=== PATIENT | female | born 1940 | race Caucasian/White ===

== ENCOUNTER 2017-02-15 11:50 | Outpatient (CLI) | payer MEDICARE, OTHER | END 2017-02-15 11:51 | disposition home or self-care (01) | LOC: LAB.WCP 11:50 | PROVIDERS: ATTEND Family Medicine | DX: E87.6 Hypokalemia (principal) | CPT/HCPCS: 36415; 84132 ==

== ENCOUNTER 2017-03-07 10:43 | Outpatient (CLI) | payer MEDICARE, OTHER ==
--- NOTE | 2017-03-07 11:37 | XRAY Report ---
TWO VIEW LEFT KNEE: 03/07/2017 CLINICAL INDICATION: Knee pain. FINDINGS: Standing frontal and lateral views of the left knee demonstrate mild osteoarthritis. There is no evidence of fracture. No effusion is evident. IMPRESSION: MILD OSTEOARTHRITIS. JOB #: [id number] EXT JOB #:[id number]
== END 2017-03-07 10:44 | disposition home or self-care (01) ==
LOC: DI 10:43
PROVIDERS: ATTEND Family Medicine
DX: M17.12 Unilateral primary osteoarthritis, left knee (principal)

== ENCOUNTER 2017-11-07 13:48 | Outpatient (CLI) | payer MEDICARE, OTHER ==
[2017-11-07 19:18] LABS: BASOPHILS % (AUTO) 0.5 %; EOSINOPHILS % (AUTO) 0.5 %; HGB - HEMOGLOBIN 13.2 g/dL (12.0-16.0); LYMPHOCYTES # (AUTO) 1.4 10^3/uL (1.5-3.5); LYMPHOCYTES % (AUTO) 26.7 %; MEAN CORPUSCULAR HEMOGLOBIN 29.3 pg (27.0-31.0); MEAN CORPUSCULAR HGB CONC 32.1 g/dL (32.0-36.0); MEAN CORPUSCULAR VOLUME 91.2 fL (81.0-99.0); MEAN PLATELET VOLUME 8.6 fL (7.9-10.8); MONOCYTES # (AUTO) 0.4 10^3/uL (0.0-1.0); MONOCYTES % (AUTO) 7.6 %; NEUTROPHILS # (AUTO) 3.5 10^3/uL (1.5-6.6); NEUTROPHILS % (AUTO) 64.7 %; PLT - PLATELET COUNT 293 10^3/uL (130-450); WHITE BLOOD COUNT 5.3 x10^3/uL (4.8-10.8)
[2017-11-07 19:38] LABS: ALBUMIN 4.1 g/dL (3.2-5.5); ALBUMIN/GLOBULIN RATIO 1.1 (1.0-2.2); ALKALINE PHOSPHATASE 59 IU/L (42-121); ALT ALANINE AMINOTRANSFERASE 16 IU/L (10-60); AST ASPARTATE AMINOTRANSFERASE 23 IU/L (10-42); BILIRUBIN,TOTAL 0.4 mg/dL (0.2-1.0); BUN - BLOOD UREA NITROGEN 13 mg/dL (6-20); CALCIUM 9.5 mg/dL (8.5-10.3); CARBON DIOXIDE - CO2 27 mmol/L (21-32); CHLORIDE 99 mmol/L (101-111); CHOL/HDL RATIO 3.4 (<4.4); CHOLESTEROL 199 mg/dL; CREATININE 0.7 mg/dL (0.4-1.0); GFR - MDRD 81 (>89); GLUCOSE 90 mg/dL (70-100); HDL CHOLESTEROL 58 mg/dL; LDL CHOLESTEROL,CALCULATED 106 mg/dL; LDL/HDL RATIO 1.8 (<4.4); SODIUM 137 mmol/L (135-145); TOTAL PROTEIN 7.7 g/dL (6.7-8.2); VLDL CHOLESTEROL 35 mg/dL
[2017-11-07 19:40] LABS: HB2 TOTAL 14.8 g/dL; HEMOGLOBIN A1C 0.52 g/dL; HEMOGLOBIN A1C % 5.4 % (4.6-6.2)
== END 2017-11-07 13:49 ==
LOC: LAB.WCP 13:48
PROVIDERS: ATTEND Family Medicine
DX: R53.83 Other fatigue (principal); R73.01 Impaired fasting glucose; I10 Essential (primary) hypertension
CPT/HCPCS: 36415; 80053; 80061; 83036; 83721; 84443; 85025

== ENCOUNTER 2017-11-24 08:01 | Day surgery (SDC) | payer MEDICARE, OTHER ==
[~2017-11-24 08:01] MED LIST: BRIMONIDINE 0.2% OPHTH DROPS 5 ML ONE; BSS/LIDOCAINE/EPINEPHRINE 1 ML SYRINGE ONE; EPINEPHrine 1 MG/ML AMP ONE; TIMOLOL 0.5% OPHTH DROPS ONE; TRIAMCIN/MOXIFLOX OPHTHALMIC 0.6 ML VIAL IO ONE; VANCOMYCIN OPHTHALMI 8MG/0.8ML 8 MG/0.8 ML SYRINGE IO ONE
[2017-11-24] MEDS ORDERED: PROPARACAINE 0.5% OPHTH DROPS 15 ML ONE (08:59)
[2017-11-24] MEDS ORDERED: PHENYLEPHRINE 2.5% OPHTH 2 ML DROPS ONE (08:59)
[2017-11-24] MEDS ORDERED: KETOROLAC 0.45% OPHTH DROPS ONE (08:59)
[2017-11-24] MEDS ORDERED: CYCLOPENTOLATE 1% OPHTH DROPS 2 ML ONE (08:59)
[2017-11-24] MEDS ORDERED: PHENYLEPHRINE 2.5% OPHTH 2 ML DROPS RIGHTEYE ONE (09:15)
[2017-11-24] MEDS ORDERED: CYCLOPENTOLATE 1% OPHTH DROPS 2 ML RIGHTEYE ONE (09:15)
[2017-11-24] MEDS ORDERED: KETOROLAC 0.45% OPHTH DROPS RIGHTEYE ONE (09:15)
[2017-11-24] MEDS ORDERED: PROPARACAINE 0.5% OPHTH DROPS 15 ML RIGHTEYE ONE ×2 (09:15→10:15)
[2017-11-24] MEDS ORDERED: LACTATED RINGERS 500 ML IV ONE (09:34)
[2017-11-24] MEDS ORDERED: MIDAZOLAM 2 MG/2 ML VIAL IVP ONE (10:11)
[2017-11-24] MEDS ORDERED: EPINEPHrine 1 MG/ML AMP IVP ONE (10:13)
[2017-11-24] MEDS ORDERED: BRIMONIDINE 0.2% OPHTH DROPS 5 ML OPTH ONE (10:13)
[2017-11-24] MEDS ORDERED: CHONDR SULF/HYALURONATE SYRINGE IO ONE (10:13)
[2017-11-24] MEDS ORDERED: BSS/LIDOCAINE/EPINEPHRINE 1 ML SYRINGE IO ONE ×2 (10:14)
[2017-11-24] MEDS ORDERED: TIMOLOL 0.5% OPHTH DROPS OPTH ONE (10:14)
[2017-11-24] MEDS ORDERED: BSS/LIDOCAINE/EPINEPHRINE 1 ML SYRINGE ONE (10:32)
[2017-11-24 10:37] VITALS: BP 134/61
--- NOTE | 2017-11-24 12:38 | OPERATIVE REPORT ---
DATE OF SERVICE: 11/24/2017 Physician: Cristobal Kendall MD PREOPERATIVE DIAGNOSIS: Visually significant cataract, right eye. Cataract surgery was performed on the left eye on 12/06/2013. POSTOPERATIVE DIAGNOSIS: Visually significant cataract, right eye. Cataract surgery was performed on the left eye on 12/06/2013. PROCEDURE: Phacoemulsification with posterior chamber intraocular lens implant , right eye. SURGEON: Cristobal Kendall MD ANESTHESIA: Monitored anesthesia care. COMPLICATIONS: None. OPERATIVE INDICATIONS: This is a 77-year-old female with progressive vision loss in the right eye due to 3+ nuclear sclerotic and 2+ posterior subcapsular cataract. Best corrected visual acuity was 20/40, with glare to 20/400 in the right eye. Indications for surgery were overall decrease in vision, difficulty seeing words on a computer screen, difficulty reading; difficulty seeing words, closed captions or game scores on TV. She was consented at length concerning risks and benefits of cataract surgery. Afterwards, she expressed a desire to proceed with surgery. OPERATIVE PROCEDURE: The patient was taken into OR #3 and placed under monitored anesthesia care. A surgical timeout was conducted confirming correct patient, correct procedure, and correct surgical site. She was given topical anesthesia, and then prepped and draped in the usual sterile fashion. The eye was entered at the 12 and 9 o'clock positions. Intracameral Shugarcaine was injected into the anterior chamber, followed by Viscoat. A continuous-tear curvilinear capsulorrhexis was performed. The nucleus was hydrodissected and phacoemulsified. The cortex was evacuated using automated infusion aspiration. Provisc was injected in the capsular bag, and a 21.0 diopter intraocular lens was inserted in the bag. Approximately 0.8 mL of a mixture of triamcinolone, moxifloxacin and vancomycin was injected subconjunctivally in the superior quadrant for infection and inflammation prophylaxis. I and A was used to evacuate the viscoelastic material. The eye was inflated to physiologic pressure using balanced salt solution, found to be watertight. The patient was taken from the Operating Room in good condition, given postop instructions. TD: 11/24/2017 10:38 MANJINDER
== END 2017-11-24 08:02 | disposition home or self-care (01) ==
LOC: SDS 08:01
PROVIDERS: ATTEND Ophthalmology
PROC: 08RJ3JZ Replacement of Right Lens with Synthetic Substitute, Percutaneous Approach (ICD-10-PCS; principal; 2017-11-24 09:30)
DX: H25.811 Combined forms of age-related cataract, right eye (principal); I10 Essential (primary) hypertension
CPT/HCPCS: 66984; A9270; J3490; V2632

== ENCOUNTER 2017-11-28 09:48 | Outpatient (CLI) | payer MEDICARE, OTHER ==
--- NOTE | 2017-11-28 13:18 | DEXA Report ---
Procedure Date: 11/28/2017 Accession Number: [id number] / [id number] Procedure: DEX - Dexa Spine and/or Hip CPT Code: FULL RESULT: EXAM: Dexa Spine and/or Hip DATE: 11/28/2017 11:06 AM CLINICAL HISTORY: POSTMENOPAUSAL STATUS TECHNIQUE: Dual energy x-ray absorptiometry (DXA) was performed on a [employer] System. Regions measured are the AP Spine, femoral neck, and if needed forearm. COMPARISON: None. In accordance with the International Society for Clinical Densitometry (ISCD) guidelines, data from previous exams may be reanalyzed using current recommendations and techniques. This is done to allow a more accurate basis for comparison with the current study. FINDINGS: The data for the lumbar spine is as follows: BMD (g/cm/cm) T-SCORE Z-SCORE REGION L1 1.048 -0.7 0.5 L2 1.134 -0.5 0.7 L3 1.211 0.1 1.3 L4 1.204 0.0 1.2 TOTAL 1.155 -0.2 1.0 NOTE: All evaluable vertebrae are used for classification The data for the hip is as follows: BMD (g/cm/cm) T-SCORE Z-SCORE REGION Neck 0.684 -2.5 -0.9 TOTAL 0.738 -2.1 -0.7 NOTE: The femoral neck or total proximal femur, whichever is lowest, is used for classification. IMPRESSION: THE WHO CLASSIFICATION BASED ON THE INTERNATIONAL REFERENCE STANDARD IS OSTEOPOROSIS. THE FRACTURE RISK IS HIGH. RECOMMENDATION: Patients with diagnosis of osteoporosis or osteopenia should have regular bone mineral density assessment. For those eligible for Medicare, routine testing is allowed once every 2 years. Testing frequency can be increased for patients who have rapidly progressing disease or for those who are receiving medical therapy to restore bone mass. COMMENT: World Health Organization (WHO) definitions for osteoporosis and osteopenia: NORMAL BMD: T-score at -1.0 or higher, fracture risk is low OSTEOPENIA BMD: T-score between -1.0 and -2.5, fracture risk is increased. OSTEOPOROSIS BMD: T-score at -2.5 or lower, fracture risk is high. National Osteoporosis Foundation recommends: 1. Obtain adequate dietary calcium (at least 1200 mg per day) and vitamin D (400-800 international units per day). 2. Participate, as appropriate, in regular weightbearing and muscle-strengthening exercise. 3. Avoid tobacco use and reduce alcohol and caffeine intake. 4. For more detailed information see the website at www.NOF.org.
== END 2017-11-28 09:49 | disposition home or self-care (01) ==
LOC: DI 09:48
PROVIDERS: ATTEND Family Medicine
DX: M81.0 Age-related osteoporosis without current pathological fracture (principal)
CPT/HCPCS: 77080

== ENCOUNTER 2017-11-28 09:50 | Outpatient (CLI) | payer MEDICARE, OTHER ==
--- NOTE | 2017-11-29 15:38 | Mammography Report ---
Procedure Date: 11/28/2017 Accession Number: [id number] / [id number] Procedure: TRISTON - Screening Mammo Dig Bilat CPT Code: FULL RESULT: EXAM: Screening Mammo Dig Bilat DATE: 11/28/2017 11:05 AM CLINICAL HISTORY: 77-year-old for screening TECHNIQUE: Bilateral CC and MLO views were obtained. COMPARISON: 08/29/2015, 07/03/2014, 06/27/2013, 07/05/2012, 07/07/2011, 07/01/2010, 06/25/2009 FINDINGS: The breasts demonstrate scattered fibroglandular densities bilaterally. No suspicious masses, clustered microcalcifications, or regions of architectural distortion are identified. IMPRESSION: Negative examination RECOMMENDATION: Routine annual screening unless otherwise clinically indicated. BIRADS CATEGORY 1: Negative STANDARD QUALIFYING STATEMENTS: 1. This examination was reviewed with the aid of Computer-Aided Detection (CAD). 2. A negative or benign imaging report should not delay biopsy if clinically suspicious findings are present. Consider surgical consultation if warrented. More than 5% of cancers are not identified by imaging. 3. Dense breasts may obscure an underlying neoplasm.
== END 2017-11-28 09:51 | disposition home or self-care (01) ==
LOC: DI 09:50
PROVIDERS: ATTEND Family Medicine
DX: Z12.31 Encounter for screening mammogram for malignant neoplasm of breast (principal)
CPT/HCPCS: 77067

== ENCOUNTER 2019-01-01 13:09 | Outpatient (CLI) | payer MEDICARE, OTHER ==
--- NOTE | 2019-01-02 16:57 | Mammography Report ---
Reason: SCREENING MAMMO Procedure Date: 01/01/2019 Accession Number: [id number] / [id number] Procedure: TRISTON - Screening Mammo w/Sebas CPT Code: FULL RESULT: EXAM: Screening Mammo w/Sebas DATE: 01/01/2019 2:10 PM CLINICAL HISTORY: Screening encounter. TECHNIQUE: (B) - Bilateral CC and MLO views were obtained. COMPARISON: 11/28/2017 through 06/27/2013. PARENCHYMAL PATTERN: (A) - The breast(s) demonstrate(s) scattered fibroglandular densities. FINDINGS: There are no suspicious masses, calcifications, or areas of distortion. IMPRESSION: Negative examination. BI-RADS category 1. RECOMMENDATION: (ANNUAL) - Recommend routine annual screening mammography. BI-RADS CATEGORY: (1) - Negative. STANDARD QUALIFYING STATEMENTS: 1. This examination was not reviewed with the aid of Computer-Aided Detection (CAD). 2. A negative or benign imaging report should not preclude biopsy if clinically suspicious findings are present. 3. Dense breasts may obscure an underlying neoplasm. 4. This examination was reviewed with the aid of 3D breast imaging (tomosynthesis).
== END 2019-01-01 13:10 | disposition home or self-care (01) ==
LOC: DI 13:09
DX: Z12.31 Encounter for screening mammogram for malignant neoplasm of breast (principal)
CPT/HCPCS: 77063; 77067

== ENCOUNTER 2019-11-12 08:00 | Outpatient (CLI) | payer MEDICARE, OTHER ==
[2019-11-12 12:29] LABS: BASOPHILS % (AUTO) 0.8 %; EOSINOPHILS # (AUTO) 0.1 10^3/uL (0.0-0.7); EOSINOPHILS % (AUTO) 1.6 %; HGB - HEMOGLOBIN 10.5 g/dL (12.0-16.0); LYMPHOCYTES # (AUTO) 1.7 10^3/uL (1.5-3.5); LYMPHOCYTES % (AUTO) 33.4 %; MEAN CORPUSCULAR HEMOGLOBIN 22.8 pg (27.0-31.0); MEAN CORPUSCULAR HGB CONC 28.8 g/dL (32.0-36.0); MEAN CORPUSCULAR VOLUME 79.1 fL (81.0-99.0); MONOCYTES # (AUTO) 0.5 10^3/uL (0.0-1.0); MONOCYTES % (AUTO) 9.9 %; NEUTROPHILS # (AUTO) 2.7 10^3/uL (1.5-6.6); NEUTROPHILS % (AUTO) 53.9 %; PLT - PLATELET COUNT 454 10^3/uL (130-450); WHITE BLOOD COUNT 5.1 x10^3/uL (4.8-10.8)
[2019-11-12 12:31] LABS: RBC MORPHOLOGY (MULTIPLE) 3+ ANISOCYTOSIS (NORMAL)
[2019-11-12 12:51] LABS: ALBUMIN 4.1 g/dL (3.2-5.5); ALBUMIN/GLOBULIN RATIO 1.2 (1.0-2.2); ALKALINE PHOSPHATASE 74 IU/L (42-121); ALT ALANINE AMINOTRANSFERASE 20 IU/L (10-60); AST ASPARTATE AMINOTRANSFERASE 21 IU/L (10-42); BILIRUBIN,TOTAL 0.5 mg/dL (0.2-1.0); BUN - BLOOD UREA NITROGEN 16 mg/dL (6-20); CALCIUM 9.6 mg/dL (8.5-10.3); CARBON DIOXIDE - CO2 27 mmol/L (21-32); CHLORIDE 97 mmol/L (101-111); CHOL/HDL RATIO 3.6 (<4.4); CHOLESTEROL 212 mg/dL; CREATININE 0.8 mg/dL (0.4-1.0); GLUCOSE 99 mg/dL (70-100); HDL CHOLESTEROL 59 mg/dL; LDL CHOLESTEROL,CALCULATED 124 mg/dL; LDL/HDL RATIO 2.1 (<4.4); SODIUM 138 mmol/L (135-145); TOTAL PROTEIN 7.4 g/dL (6.7-8.2); VLDL CHOLESTEROL 29 mg/dL
== END 2019-11-12 23:59 | disposition home or self-care (01) ==
LOC: LAB.WCP 08:00
PROVIDERS: ATTEND Nurse Practitioner Family
DX: I10 Essential (primary) hypertension (principal); R53.83 Other fatigue
CPT/HCPCS: 36415; 80053; 80061; 83721; 84443; 85025

== ENCOUNTER 2019-11-14 07:08 | Outpatient (CLI) | payer MEDICARE, OTHER ==
[2019-11-14 12:18] LABS: ABSOLUTE RETICS # AUTO 0.081 10^6/uL (0.020-0.110); RED BLOOD COUNT 4.71 10^6/uL (4.20-5.40)
[2019-11-14 13:15] LABS: % IRON SATURATION 7 % (20-50); IRON 33 ug/dL (28-170); TOTAL IRON BINDING CAPACITY 477 ug/dL (250-450); TRANSFERRIN 341 mg/dL (192-382)
[2019-11-14 13:40] LABS: FERRITIN 5.3 ng/mL (11.0-306.8)
== END 2019-11-14 23:59 | disposition home or self-care (01) ==
LOC: LAB.WCP 07:08
PROVIDERS: ATTEND Nurse Practitioner Family
DX: D64.9 Anemia, unspecified (principal)
CPT/HCPCS: 36415; 82607; 82728; 82746; 83540; 84466; 85045

== ENCOUNTER 2020-01-30 07:00 | Outpatient (CLI) | payer MEDICARE, OTHER ==
[2020-01-30 12:19] LABS: BASOPHILS % (AUTO) 0.6 %; EOSINOPHILS % (AUTO) 0.5 %; LYMPHOCYTES # (AUTO) 1.5 10^3/uL (1.5-3.5); LYMPHOCYTES % (AUTO) 24.3 %; MEAN CORPUSCULAR HEMOGLOBIN 28.7 pg (27.0-31.0); MEAN CORPUSCULAR HGB CONC 30.7 g/dL (32.0-36.0); MEAN CORPUSCULAR VOLUME 93.4 fL (81.0-99.0); MONOCYTES # (AUTO) 0.5 10^3/uL (0.0-1.0); MONOCYTES % (AUTO) 7.9 %; NEUTROPHILS # (AUTO) 4.2 10^3/uL (1.5-6.6); NEUTROPHILS % (AUTO) 66.2 %; PLT - PLATELET COUNT 338 10^3/uL (130-450); RED BLOOD COUNT 4.53 10^6/uL (4.20-5.40); RED CELL DISTRIBUTION WIDTH 18.5 % (12.0-15.0); WHITE BLOOD COUNT 6.3 x10^3/uL (4.8-10.8)
[2020-01-30 13:16] LABS: CRP - C-REACTIVE PROTEIN 1.9 mg/dL (0-1.0)
[2020-01-30 13:17] LABS: URIC ACID 7.1 mg/dL (2.6-7.2)
== END 2020-01-30 23:59 | disposition home or self-care (01) ==
LOC: LAB.WCP 07:00
PROVIDERS: ATTEND Family Medicine
DX: M79.671 Pain in right foot (principal)
CPT/HCPCS: 36415; 84550; 85025; 85651; 86140

== ENCOUNTER 2020-03-17 08:45 | Outpatient (CLI) | payer MEDICARE, OTHER ==
[2020-03-17 11:56] LABS: BASOPHILS % (AUTO) 0.5 %; EOSINOPHILS % (AUTO) 0.7 %; LYMPHOCYTES # (AUTO) 1.4 10^3/uL (1.5-3.5); LYMPHOCYTES % (AUTO) 23.9 %; MEAN CORPUSCULAR HEMOGLOBIN 30.9 pg (27.0-31.0); MEAN CORPUSCULAR HGB CONC 31.4 g/dL (32.0-36.0); MEAN CORPUSCULAR VOLUME 98.3 fL (81.0-99.0); MEAN PLATELET VOLUME 10.1 fL (7.9-10.8); MONOCYTES # (AUTO) 0.6 10^3/uL (0.0-1.0); MONOCYTES % (AUTO) 9.1 %; NEUTROPHILS # (AUTO) 3.9 10^3/uL (1.5-6.6); NEUTROPHILS % (AUTO) 65.3 %; PLT - PLATELET COUNT 341 10^3/uL (130-450); RED BLOOD COUNT 4.21 10^6/uL (4.20-5.40); RED CELL DISTRIBUTION WIDTH 13.7 % (12.0-15.0)
[2020-03-17 12:27] LABS: CALCIUM 9.2 mg/dL (8.5-10.3); CREATININE 0.9 mg/dL (0.4-1.0)
[2020-03-17 12:54] LABS: URIC ACID 4.9 mg/dL (2.6-7.2)
[2020-03-17 13:04] LABS: CRP - C-REACTIVE PROTEIN < 1.0 mg/dL (0-1.0)
== END 2020-03-17 23:59 | disposition home or self-care (01) ==
LOC: LAB.WCP 08:45
PROVIDERS: ATTEND Internal Medicine Cardiovascular Disease
DX: R06.09 Other forms of dyspnea (principal); M10.00 Idiopathic gout, unspecified site
CPT/HCPCS: 36415; 80048; 84550; 85025; 85651; 86140

== ENCOUNTER 2020-09-05 08:58 | Outpatient (CLI) | payer MEDICARE, OTHER ==
--- NOTE | 2020-09-05 09:29 | XRAY Report ---
PROCEDURE: Hip w/Pelvis 1V RT INDICATIONS: RT HIP PAIN TECHNIQUE: AP pelvis with lateral view(s) of the right hip(s). COMPARISON: 01/03/2017. FINDINGS: Bones: No fractures or dislocations. Asymmetric moderate to severe right hip joint osteoarthritis i s seen with near complete loss of superior joint space, extensive subchondral sclerosis and cyst form ation. No evidence of avascular necrosis of femoral head. Suggestion of old healed left superior and inferior pubic rami fractures are seen. Pelvic ring appears intact. No suspicious bony lesions. Soft tissues: The visualized bowel gas pattern is normal. No suspicious soft tissue calcifications. IMPRESSION: Asymmetric moderate to severe right hip joint osteoarthritis. No acute right hip fracture or dislocation. No evidence of avascular necrosis. Suggestion of old healed left superior and inferi or pubic rami fracture. Reviewed by: Leander Bills MD on 09/05/2020 8:28 AM JOSE Approved by: Leander Bills MD on 09/05/2020 8:28 AM [place]STORM Station ID: [id number]
== END 2020-09-05 08:59 | disposition home or self-care (01) ==
LOC: DI.N 08:58
PROVIDERS: ATTEND Family Medicine
DX: M16.11 Unilateral primary osteoarthritis, right hip (principal)

== ENCOUNTER 2020-12-30 07:59 | Outpatient (CLI) | payer MEDICARE, OTHER ==
[2020-12-30 12:16] LABS: BASOPHILS % (AUTO) 0.6 %; EOSINOPHILS % (AUTO) 0.8 %; HCT - HEMATOCRIT 42.6 % (37.0-47.0); HGB - HEMOGLOBIN 13.4 g/dL (12.0-16.0); LYMPHOCYTES # (AUTO) 1.1 10^3/uL (1.5-3.5); LYMPHOCYTES % (AUTO) 22.3 %; MEAN CORPUSCULAR HEMOGLOBIN 29.6 pg (27.0-31.0); MEAN CORPUSCULAR HGB CONC 31.5 g/dL (32.0-36.0); MEAN CORPUSCULAR VOLUME 94.2 fL (81.0-99.0); MEAN PLATELET VOLUME 10.1 fL (7.9-10.8); MONOCYTES # (AUTO) 0.4 10^3/uL (0.0-1.0); MONOCYTES % (AUTO) 8.2 %; NEUTROPHILS # (AUTO) 3.4 10^3/uL (1.5-6.6); NEUTROPHILS % (AUTO) 67.7 %; PLT - PLATELET COUNT 351 10^3/uL (130-450); RED BLOOD COUNT 4.52 10^6/uL (4.20-5.40); RED CELL DISTRIBUTION WIDTH 13.6 % (12.0-15.0)
[2020-12-30 12:50] LABS: % IRON SATURATION 16 % (20-50); ALBUMIN 4.1 g/dL (3.2-5.5); ALBUMIN/GLOBULIN RATIO 1.3 (1.0-2.2); ALKALINE PHOSPHATASE 60 IU/L (42-121); ALT ALANINE AMINOTRANSFERASE 18 IU/L (10-60); AST ASPARTATE AMINOTRANSFERASE 19 IU/L (10-42); BILIRUBIN,TOTAL 0.4 mg/dL (0.2-1.0); BUN - BLOOD UREA NITROGEN 12 mg/dL (6-20); CALCIUM 9.4 mg/dL (8.5-10.3); CARBON DIOXIDE - CO2 26 mmol/L (21-32); CHLORIDE 103 mmol/L (101-111); CHOL/HDL RATIO 3.8 (<4.4); CHOLESTEROL 184 mg/dL; CREATININE 0.8 mg/dL (0.4-1.0); GFR - MDRD 69 (>89); GLUCOSE 112 mg/dL (70-100); HDL CHOLESTEROL 48 mg/dL; IRON 54 ug/dL (28-170); LDL CHOLESTEROL,CALCULATED 99 mg/dL; LDL/HDL RATIO 2.1 (<4.4); POTASSIUM 3.9 mmol/L (3.5-5.0); SODIUM 139 mmol/L (135-145); TOTAL IRON BINDING CAPACITY 340 ug/dL (250-450); TOTAL PROTEIN 7.2 g/dL (6.7-8.2); TRANSFERRIN 243 mg/dL (192-382); TRIGLYCERIDES 187 mg/dL; URIC ACID 5.5 mg/dL (2.6-7.2); VLDL CHOLESTEROL 37 mg/dL
[2020-12-30 12:53] LABS: THYROID STIMULATING HORMONE 2.31 uIU/mL (0.34-5.60)
[2020-12-30 12:54] LABS: ESTIMATED AVERAGE GLUCOSE 120 mg/dL (70-100); HEMOGLOBIN A1c% 5.8 % (4.27-6.07)
[2020-12-30 12:59] LABS: FERRITIN 42.9 ng/mL (11.0-306.8)
== END 2020-12-30 23:59 | disposition home or self-care (01) ==
LOC: LAB.WCP 07:59
PROVIDERS: ATTEND Family Medicine
DX: D64.9 Anemia, unspecified (principal); I10 Essential (primary) hypertension; R73.01 Impaired fasting glucose; M10.9 Gout, unspecified
CPT/HCPCS: 36415; 80053; 80061; 82607; 82728; 83036; 83540; 83721; 84443; 84466; 84550; 85025

== ENCOUNTER 2021-10-20 08:00 | Outpatient (CLI) | payer MEDICARE, OTHER ==
[2021-10-20 11:58] LABS: CALCIUM 9.4 mg/dL (8.5-10.3); POTASSIUM 3.7 mmol/L (3.5-5.0)
== END 2021-10-20 23:59 | disposition home or self-care (01) ==
LOC: LAB.N 08:00
PROVIDERS: ATTEND Registered Nurse
DX: U07.1 COVID-19 (principal)
CPT/HCPCS: 36415; 80048; U0004

== ENCOUNTER 2021-12-09 10:50 | Outpatient (CLI) | payer MEDICARE, OTHER ==
--- NOTE | 2021-12-09 11:46 | XRAY Report ---
PROCEDURE: Chest 2 View X-Ray INDICATIONS: COUGH TECHNIQUE: 2 view(s) of the chest. COMPARISON: None. FINDINGS: Surgical changes and devices: None. Lungs and pleura: No pleural effusions or pneumothorax. Lungs are clear. Mediastinum: Mediastinal contours are normal. Heart size is normal. Bones and chest wall: No suspicious bony abnormalities. Soft tissues appear unremarkable. IMPRESSION: No acute cardiothoracic abnormality. Reviewed by: Solitario Granados MD on 12/09/2021 11:45 AM PDT Approved by: Solitario Granados MD on 12/09/2021 11:45 AM PDT Station ID: [id number]
== END 2021-12-09 10:51 | disposition home or self-care (01) ==
LOC: DI.N 10:50
PROVIDERS: ATTEND Physician Assistant
DX: R05.1 Acute cough (principal)

== ENCOUNTER 2021-12-18 07:34 | Outpatient (CLI) | payer MEDICARE, OTHER ==
--- NOTE | 2021-12-18 14:22 | DEXA Report ---
PROCEDURE: Dexa Spine and/or Hip INDICATIONS: POST MENOPAUSAL TECHNIQUE: Dual energy x-ray absorptiometry (DXA) was performed on a [employer] System. Regions measur ed are the AP Spine, femoral neck, and if needed forearm. COMPARISON: None. FINDINGS: Lumbar Spine: Bone Mineral Density 1.211 g/cm/cm,T score 0.3, compared to -0.2 Left Hip: Bone Mineral Density 0.789 g/cm/cm,T score -1.7, compared to -2.1 Left Femoral Neck: Bone Mineral Density 0.798 g/cm/cm, T score -1.7, compared to -2.5 (T score greater or equal to -1.0: NORMAL) (T score from -1.1 to -2.4: OSTEOPENIA) (T score less than or equal to -2.5 to: OSTEOPOROSIS) Impression: Improved overall bone mineral density with the left hip and femoral neck now osteopenic compared to o steoporosis in the femoral neck on prior exam. Patients with diagnosis of osteoporosis or osteopenia should have regular bone mineral density assess ment. For those eligible for Medicare, routine testing is allowed once every 2 years. Testing frequ ency can be increased for patients who have rapidly progressing disease or for those who are receivin g medical therapy to restore bone mass. Reviewed by: Charisse Siddiqui MD on 12/18/2021 2:21 PM PDT Approved by: Charisse Siddiqui MD on 12/18/2021 2:21 PM PDT Station ID: [id number]
== END 2021-12-18 07:35 | disposition home or self-care (01) ==
LOC: DI 07:34
PROVIDERS: ATTEND Physician Assistant
DX: Z78.0 Asymptomatic menopausal state (principal); M85.89 Other specified disorders of bone density and structure, multiple sites

== ENCOUNTER 2022-12-12 16:06 | Emergency (ER) | payer MEDICARE, OTHER ==
--- NOTE | 2022-12-12 16:47 | ED Physician Documentation ---
History of Present Illness - Stated complaint Stated Complaint: SINUS PX/LIGHTHEADED - Chief complaint Chief Complaint: Neuro - History obtained from History obtained from: Patient - History of Present Illness Timing: Yesterday Pain level max: 0 Pain level now: 0 - Additonal information Additional information: Patient is a 82-year-old female who presents to the emergency department stating 2 days ago she felt lightheaded like she was going to pass out for about 2 minutes. She states that today when she was vacuuming she felt "weird" for 1 to 2 seconds. Did not feel near syncopal. Nothing made it better or worse. Currently feels normal. No chest pain. No shortness of breath Patient denies any changes to her medication. She states she does not drink much water. She is on Lasix and potassium at home. Review of Systems Constitutional: denies: Fever, Chills Nose: denies: Rhinorrhea / runny nose, Congestion GI: denies: Vomiting, Diarrhea Skin: denies: Rash Musculoskeletal: denies: Neck pain, Back pain Neurologic: denies: Headache PD PAST MEDICAL HISTORY - Past Medical History Past Medical History: Yes Cardiovascular: Hypertension Respiratory: None Endocrine/Autoimmune: None GI: GERD : None HEENT: None Psych: Claustrophobia Musculoskeletal: Osteoarthritis Derm: None - Past Surgical History General: Cholecystectomy, Colonoscopy /URBAN FORESTER: Hysterectomy HEENT: Tonsil/Adenoidectomy - Present Medications Home Medications: Ambulatory Orders Medication Instructions Recorded Confirmed Aspirin [Aspir 81] 81 mg ORAL DAILY 12/05/13 11/24/17 Esomeprazole Magnesium [Nexium] 20 mg PO DAILY PRN 12/05/13 11/24/17 hydroCHLOROthiazide 12.5 mg PO DAILY 12/05/13 11/24/17 [Hydrochlorothiazide] Ascorbic Acid [Vitamin C] 500 mg PO BID 11/22/17 11/24/17 Calcium Carbonate/Vitamin D3 1 each PO BID 11/22/17 11/24/17 [Caltrate 600 Plus D3 Tablet] Multivit-Min/FA/Lycopen/Lutein 1 each PO DAILY 11/22/17 11/24/17 [Centrum Silver Men Tablet] Potassium Chloride [Klor-Con M20] 20 meq PO DAILY 11/22/17 11/24/17 - Allergies Allergies/Adverse Reactions: Allergies Allergy/AdvReac Type Severity Reaction Status Date / Time No Known Drug Allergies Allergy Verified 12/12/22 16:18 PD ED PE NORMAL - Vitals Vital signs reviewed: Yes - General General: Alert and oriented X 3, No acute distress - HEENT HEENT: Atraumatic, PERRL, EOMI, Ears normal, Moist mucous membranes (dry lips and tongue), Pharynx benign - Neck Neck: Supple, no meningeal sign, No bony TTP - Cardiac Cardiac: RRR, Strong equal pulses - Respiratory Respiratory: No respiratory distress, Clear bilaterally - Abdomen Abdomen: Soft, Non tender, Non distended - Back Back: No spinal TTP - Derm Derm: Warm and dry, No rash - Extremities Extremities: No edema - Neuro Neuro: Alert and oriented X 3, store standards associate 2-12 intact, No motor deficit, No sensory deficit, Normal speech Eye Opening: Spontaneous Motor: Obeys Commands Verbal: Oriented GCS Score: 15 - Psych Psych: Normal mood, Normal affect Results - Vitals Vitals: Vital Signs - 24 hr 12/12/22 12/12/22 16:15 18:18 Temperature 37.1 C 36.8 C Heart Rate 91 89 Respiratory 15 18 Rate Blood Pressure 155/60 H 151/77 H O2 Saturation 95 100 Oxygen O2 Source Room air - EKG (time done) 1632 EKG releavant findings:: EKG personally interpreted by author of this note. Relevant findings are: Rate: Rate (enter#) (85) Rhythm: NSR [place]: Normal Intervals: Normal CO QRS: Normal Ischemia: Normal ST segments - Labs Labs: Laboratory Tests 12/12/22 12/12/22 12/12/22 16:45 16:45 16:45 WBC 6.4 RBC 3.46 L Hgb 10.1 L Hct 33.4 L MCV 96.5 MCH 29.2 MCHC 30.2 L RDW 14.1 Plt Count 393 MPV 9.4 Neut # (Auto) 4.9 Lymph # (Auto) 0.9 L [place] # (Auto) 0.5 Eos # (Auto) 0.0 Baso # (Auto) 0.0 Absolute Nucleated RBC 0.00 Nucleated RBC % 0.0 Sodium 138 Potassium 3.8 Chloride 103 Carbon Dioxide 28 Anion Gap 7.0 BUN 17 Creatinine 0.7 Estimated GFR (MDRD) 80 L Glucose 123 H Calcium 9.3 Phosphorus 2.7 L Magnesium 2.1 Total Bilirubin 0.2 AST 11 ALT 8 L Alkaline Phosphatase 67 Troponin I High Sens 3.1 Total Protein 6.8 Albumin 4.0 Globulin 2.8 Albumin/Globulin Ratio 1.4 Lipase 13 Urine Color Urine Clarity Urine pH Ur Specific [place] Urine Protein Urine Glucose (UA) Urine Ketones Urine Occult Blood Urine Nitrite Urine Bilirubin Urine Urobilinogen Ur Leukocyte Esterase Ur Microscopic Review Urine Culture Comments 12/12/22 17:12 WBC RBC Hgb Hct MCV MCH MCHC RDW Plt Count MPV Neut # (Auto) Lymph # (Auto) [place] # (Auto) Eos # (Auto) Baso # (Auto) Absolute Nucleated RBC Nucleated RBC % Sodium Potassium Chloride Carbon Dioxide Anion Gap BUN Creatinine Estimated GFR (MDRD) Glucose Calcium Phosphorus Magnesium Total Bilirubin AST ALT Alkaline Phosphatase Troponin I High Sens Total Protein Albumin Globulin Albumin/Globulin Ratio Lipase Urine Color YELLOW Urine Clarity CLEAR Urine pH 7.0 Ur Specific [place] 1.015 Urine Protein NEGATIVE Urine Glucose (UA) NEGATIVE Urine Ketones NEGATIVE Urine Occult Blood NEGATIVE Urine Nitrite NEGATIVE Urine Bilirubin NEGATIVE Urine Urobilinogen 0.2 (NORMAL) Ur Leukocyte Esterase NEGATIVE Ur Microscopic Review NOT INDICATED Urine Culture Comments NOT INDICATED - Rads (name of study) cxr Relevant Findings:: Final report received, See rad report PD Medical Decision Making - ED course Complexity details: reviewed results, re-evaluated patient, considered differential, d/w patient, d/w family ED course: Patient is well-appearing, nontoxic. Afebrile. No significant lab abnormalities. Feels much better after IV fluids. Not orthostatic. No evidence of acute coronary syndrome. No evidence of PE. Ambulating without difficulty. No focal neurological deficits. Likely that she became dehydrated and that caused her dizziness. Patient counseled regarding signs and symptoms for which I believe and urgent re-evaluation would be necessary. Patient with good understanding of and agreement to plan and is comfortable going home at this time This document was made in part using voice recognition software. While efforts are made to proofread this document, sound alike and grammatical errors may occur. NIH stroke scale of 0. No focal neurological deficits. Departure - Departure Disposition: 01 Home, Self Care Clinical Impression: Dehydration Condition: Good Instructions: ED Dehydration Follow-Up: Kaci Bain PA [Primary Care Provider] - Within 1 week Comments: Make sure you are drinking plenty of fluids. Please follow-up with your doctor for further care. Please return if you worsen. You appear to be dehydrated today. Forms: PCP List Discharge Date/Time: 12/12/22 19:10
[2022-12-12] MEDS ORDERED: SODIUM CHLORIDE 0.9% 1,000 ML IV STA (16:56)
[2022-12-12] MEDS ORDERED: SODIUM CHLORIDE 0.9% 500 ML IV STA (16:56)
[2022-12-12 16:59] LABS: BASOPHILS % (AUTO) 0.6 %; EOSINOPHILS % (AUTO) 0.6 %; HCT - HEMATOCRIT 33.4 % (37.0-47.0); HGB - HEMOGLOBIN 10.1 g/dL (12.0-16.0); LYMPHOCYTES # (AUTO) 0.9 10^3/uL (1.5-3.5); LYMPHOCYTES % (AUTO) 13.9 %; MEAN CORPUSCULAR HEMOGLOBIN 29.2 pg (27.0-31.0); MEAN CORPUSCULAR HGB CONC 30.2 g/dL (32.0-36.0); MEAN CORPUSCULAR VOLUME 96.5 fL (81.0-99.0); MEAN PLATELET VOLUME 9.4 fL (7.9-10.8); MONOCYTES # (AUTO) 0.5 10^3/uL (0.0-1.0); MONOCYTES % (AUTO) 8.5 %; NEUTROPHILS # (AUTO) 4.9 10^3/uL (1.5-6.6); NEUTROPHILS % (AUTO) 76.1 %; PLT - PLATELET COUNT 393 10^3/uL (130-450); RED BLOOD COUNT 3.46 10^6/uL (4.20-5.40); RED CELL DISTRIBUTION WIDTH 14.1 % (12.0-15.0); WHITE BLOOD COUNT 6.4 x10^3/uL (4.8-10.8)
[2022-12-12 17:10] LABS: ALBUMIN/GLOBULIN RATIO 1.4 (1.0-2.2); BILIRUBIN,TOTAL 0.2 mg/dL (0.2-1.0); CALCIUM 9.3 mg/dL (8.5-10.3); CREATININE 0.7 mg/dL (0.6-1.3); MAGNESIUM 2.1 mg/dL (1.7-2.3); PHOSPHORUS 2.7 mg/dL (3.7-7.2); POTASSIUM 3.8 mmol/L (3.5-4.5); TOTAL PROTEIN 6.8 g/dL (6.4-8.9)
[2022-12-12 17:19] LABS: BILIRUBIN,URINE NEGATIVE (NEGATIVE); GLUCOSE, URINE (UA) NEGATIVE (NEGATIVE); KETONES,URINE (UA) NEGATIVE (NEGATIVE); LEUKOCYTE ESTERASE, URINE NEGATIVE (NEGATIVE); NITRITE,URINE NEGATIVE (NEGATIVE); OCCULT BLOOD,URINE NEGATIVE (NEGATIVE); PROTEIN,URINE NEGATIVE (NEGATIVE); UROBILINOGEN,URINE 0.2 (NORMAL) E.U./dL (NORMAL)
[2022-12-12 17:28] LABS: CLARITY,URINE CLEAR (CLEAR)
--- NOTE | 2022-12-12 17:28 | XRAY Report ---
PROCEDURE: Chest 1 View X-Ray INDICATIONS: Chest Pain TECHNIQUE: One view of the chest was acquired. COMPARISON: 12/09/2021 FINDINGS: Surgical changes and devices: None. Lungs and pleura: No pleural effusions or pneumothorax. Lungs are clear. Mediastinum: Mediastinal contours appear normal. Heart size is normal. Bones and chest wall: No suspicious bony lesions. Age-appropriate degenerative changes are seen. O verlying soft tissues appear unremarkable. IMPRESSION: Portable chest within normal limits for age. Reviewed by: Mateusz Rooney MD on 12/12/2022 4:27 PM JOSE Approved by: Mateusz Rooney MD on 12/12/2022 4:27 PM JOSE Station ID: [id number]
[2022-12-12 18:33] VITALS: BP 151/77
== END 2022-12-12 19:10 | disposition home or self-care (01) ==
LOC: ED 16:06
DX: E86.0 Dehydration (principal)
CPT/HCPCS: 36415; 80053; 81001; 81003; 83690; 83735; 84100; 84484; 85025; 87086; 93005; 96360; 99283

== ENCOUNTER 2022-12-23 09:59 | Outpatient (CLI) | payer MEDICARE, OTHER ==
[2022-12-23 12:05] LABS: BASOPHILS % (AUTO) 0.7 %; EOSINOPHILS % (AUTO) 0.7 %; HCT - HEMATOCRIT 34.7 % (37.0-47.0); HGB - HEMOGLOBIN 10.3 g/dL (12.0-16.0); LYMPHOCYTES % (AUTO) 17.4 %; MEAN CORPUSCULAR HEMOGLOBIN 29.3 pg (27.0-31.0); MEAN CORPUSCULAR HGB CONC 29.7 g/dL (32.0-36.0); MEAN CORPUSCULAR VOLUME 98.9 fL (81.0-99.0); MEAN PLATELET VOLUME 9.4 fL (7.9-10.8); MONOCYTES # (AUTO) 0.6 10^3/uL (0.0-1.0); MONOCYTES % (AUTO) 10.2 %; NEUTROPHILS # (AUTO) 3.9 10^3/uL (1.5-6.6); NEUTROPHILS % (AUTO) 70.5 %; PLT - PLATELET COUNT 443 10^3/uL (130-450); RED BLOOD COUNT 3.51 10^6/uL (4.20-5.40); RED CELL DISTRIBUTION WIDTH 14.4 % (12.0-15.0); WHITE BLOOD COUNT 5.5 x10^3/uL (4.8-10.8)
[2022-12-23 12:45] LABS: FERRITIN 22.2 ng/mL (11.0-306.8)
== END 2022-12-23 10:00 | disposition home or self-care (01) ==
LOC: LAB.N 09:59
PROVIDERS: ATTEND Physician Assistant
DX: D64.9 Anemia, unspecified (principal)
CPT/HCPCS: 36415; 82607; 82728; 82746; 83540; 84466; 85025

== ENCOUNTER 2023-01-14 09:24 | Outpatient (CLI) | payer MEDICARE, OTHER ==
--- NOTE | 2023-01-14 13:01 | XRAY Report ---
PROCEDURE: Thoracic Spine 2 View INDICATIONS: ACUTE THORACIC BACK PAIN,HIP PAIN,SCIATICA TECHNIQUE: 2 views of the thoracic spine were acquired. COMPARISON: Chest films dated 12/09/2021, 12/12/2022, lumbar spine films from today FINDINGS: Bones: There is a moderate to severe T11 compression which has developed since the previous chest poonam ms. This includes interval development since the portable chest film from 12/09 07/23. No suspicious bon y lesions. 12 pairs of ribs are noted, and appear intact where visualized. Soft tissues: No paravertebral stripe thickening. IMPRESSION: Acute or subacute T11 compression fracture, based on its lack of presence on 12/12/2022 Reviewed by: Stephen Houston MD on 01/14/2023 1:00 PM PDT Approved by: Stephen Houston MD on 01/14/2023 1:00 PM PDT Station ID: [id number]
--- NOTE | 2023-01-14 22:37 | XRAY Report ---
PROCEDURE: Lumbar Spine 2 View INDICATIONS: ACUTE THORACIC BACK PAIN,HIP PAIN,SCIATICA TECHNIQUE: 2 views of the lumbar spine were acquired. COMPARISON: None. FINDINGS: Bones: 5 [id number] vertebrae are present. Trace anterolisthesis of L3-4 and grade 1 anterolist hesis of L4-5. Mild to moderate multilevel disc height loss, most severe at L5-S1. Mild facet scleros is from L3 through S1. Mild central superior endplate depression and L2.. No acute vertebral body co mpression fractures. No suspicious bony lesions. Soft tissues: Overlying bowel gas pattern is normal. No suspicious soft tissue calcifications. Tessy gical clips in the right upper quadrant of the abdomen. IMPRESSION: 1. Mild disc and facet joint degeneration throughout the lumbar spine, most pronounced at L5-S1. Reviewed by: Nisreen Cristina MD on 01/14/2023 10:36 PM PDT Approved by: Nisreen Cristina MD on 01/14/2023 10:36 PM PDT Station ID: [id number]
== END 2023-01-14 09:25 | disposition home or self-care (01) ==
LOC: DI 09:24
PROVIDERS: ATTEND Registered Nurse
DX: M25.551 Pain in right hip (principal); M54.31 Sciatica, right side; M47.816 Spondylosis without myelopathy or radiculopathy, lumbar region; M51.36 Other intervertebral disc degeneration, lumbar region; M51.37 Other intervertebral disc degeneration, lumbosacral region; M48.54XA Collapsed vertebra, not elsewhere classified, thoracic region, initial encounter for fracture

== ENCOUNTER 2023-02-03 16:55 | Outpatient (CLI) | payer MEDICARE, OTHER | END 2023-02-03 23:59 | disposition EMS.NT | LOC: EMS 16:55 | DX: Z03.89 Encounter for observation for other suspected diseases and conditions ruled out (principal) ==

== ENCOUNTER 2023-02-04 10:22 | Outpatient (CLI) | payer MEDICARE, OTHER ==
--- NOTE | 2023-02-04 16:57 | XRAY Report ---
PROCEDURE: Cervical Spine Comp w/Flex/Ext INDICATIONS: KYPHOSIS OF CERVICAL SPINE TECHNIQUE: 7 views of the cervical spine were acquired. COMPARISON: None. FINDINGS: Bones: There is severe kyphosis. Lower cervical spine/cervicothoracic junction not well seen. No fra ctures or dislocations to the C5 level. No suspicious bony lesions. Moderate degenerative disc dise ase at C4--C5, C5-C6 and C6-C7. Bilateral facet arthropathy, most pronounced and severe at C2-C3 and C3-C4 on the left, moderate C4-C5 bilaterally, moderate at C5-C6 and C6-C7 bilaterally. Osteopenia. Oblique views: Moderate to severe bilateral foraminal stenoses at C4-C5, C5-C6 and C6-C7. Flexion and extension: There is limited range of motion between flexion and extension, with preserved bony alignment. Soft tissues: Prevertebral soft tissues are normal in thickness. IMPRESSION: 1. Limited visualization of cervicothoracic junction due to severe kyphosis and osteopenia. 2. Multilevel degenerative disc and facet disease. 3. There are multilevel foraminal stenoses bilaterally. 4. Limited range of motion. Reviewed by: Den Odell MD on 02/04/2023 4:56 PM PDT Approved by: Den Odell MD on 02/04/2023 4:56 PM PDT Station ID: [id number]
--- NOTE | 2023-02-04 17:02 | XRAY Report ---
PROCEDURE: Lumbar Spine Complete INDICATIONS: SACRAL BACK PAIN TECHNIQUE: 3 views of the lumbar spine were acquired. COMPARISON: X-ray lumbar spine, 01/14/2023. X-ray lumbar spine, 01/14/2023. FINDINGS: Bones: 5 [id number] vertebrae are present. There is normal bony alignment. Severe vertebral frankie dy compression fracture of T11, unchanged in severity. No suspicious bony lesions. There is mild deg enerative disc disease throughout the lumbar spine. Moderate to severe facet arthropathy at L3-L4, L4 -L5 and L5-S1. No pars defect. Soft tissues: Overlying bowel gas pattern is normal. No suspicious soft tissue calcifications. IMPRESSION: 1. Stable severe compression fracture of T11. 2. Mild degenerative disc disease and moderate to severe facet arthropathy in lumbar spine. Reviewed by: Den Odell MD on 02/04/2023 5:01 PM PDT Approved by: Den Odell MD on 02/04/2023 5:01 PM PDT Station ID: [id number]
== END 2023-02-04 10:23 | disposition home or self-care (01) ==
LOC: DI 10:22
PROVIDERS: ATTEND Physician Assistant
DX: M40.202 Unspecified kyphosis, cervical region (principal); M54.30 Sciatica, unspecified side; M48.54XA Collapsed vertebra, not elsewhere classified, thoracic region, initial encounter for fracture; M47.816 Spondylosis without myelopathy or radiculopathy, lumbar region; M51.36 Other intervertebral disc degeneration, lumbar region

== ENCOUNTER 2023-03-09 17:08 | Outpatient (CLI) | payer MEDICARE, OTHER ==
[2023-03-09 17:55] LABS: BASOPHILS % (AUTO) 0.7 %; EOSINOPHILS # (AUTO) 0.1 10^3/uL (0.0-0.7); HCT - HEMATOCRIT 40.1 % (37.0-47.0); HGB - HEMOGLOBIN 12.2 g/dL (12.0-16.0); LYMPHOCYTES # (AUTO) 1.1 10^3/uL (1.5-3.5); LYMPHOCYTES % (AUTO) 17.6 %; MEAN CORPUSCULAR HEMOGLOBIN 28.8 pg (27.0-31.0); MEAN CORPUSCULAR HGB CONC 30.4 g/dL (32.0-36.0); MEAN CORPUSCULAR VOLUME 94.6 fL (81.0-99.0); MEAN PLATELET VOLUME 9.4 fL (7.9-10.8); MONOCYTES # (AUTO) 0.5 10^3/uL (0.0-1.0); MONOCYTES % (AUTO) 7.7 %; NEUTROPHILS # (AUTO) 4.5 10^3/uL (1.5-6.6); NEUTROPHILS % (AUTO) 72.7 %; PLT - PLATELET COUNT 417 10^3/uL (130-450); RED BLOOD COUNT 4.24 10^6/uL (4.20-5.40); RED CELL DISTRIBUTION WIDTH 14.8 % (12.0-15.0); WHITE BLOOD COUNT 6.1 x10^3/uL (4.8-10.8)
[2023-03-09 18:05] LABS: ALBUMIN 3.9 g/dL (3.2-5.5); ALBUMIN/GLOBULIN RATIO 1.4 (1.0-2.2); BILIRUBIN,TOTAL 0.2 mg/dL (0.2-1.0); CALCIUM 9.6 mg/dL (8.5-10.3); CREATININE 0.8 mg/dL (0.6-1.3); PARTIAL THROMBOPLASTIN TIME 31.9 secs (24.9-33.3); POTASSIUM 3.8 mmol/L (3.5-4.5); TOTAL PROTEIN 6.6 g/dL (6.4-8.9); URIC ACID 5.2 mg/dL (2.3-6.6)
[2023-03-09 18:10] LABS: INR 1.1 (0.8-1.2); PT - PROTHROMBIN TIME 11.5 secs (9.9-12.6)
[2023-03-09 18:19] LABS: THYROID STIMULATING HORMONE 2.58 uIU/mL (0.34-5.60)
[2023-03-09 21:09] LABS: ESTIMATED AVERAGE GLUCOSE 111 mg/dL (70-100); HEMOGLOBIN A1c% 5.5 % (4.27-6.07)
== END 2023-03-09 17:09 | disposition home or self-care (01) ==
LOC: LAB 17:08
PROVIDERS: ATTEND Physician Assistant
DX: I10 Essential (primary) hypertension (principal); R73.03 Prediabetes; M10.00 Idiopathic gout, unspecified site; D64.9 Anemia, unspecified
CPT/HCPCS: 36415; 80053; 83036; 84443; 84550; 85025; 85610; 85730

== ENCOUNTER 2023-04-20 21:52 | Inpatient (IN) | payer MEDICARE, OTHER ==
[~2023-04-20 21:52] MED LIST changes: -BRIMONIDINE 0.2% OPHTH DROPS 5 ML ONE; -BSS/LIDOCAINE/EPINEPHRINE 1 ML SYRINGE ONE; +BUPIVACAINE 0.5% PF 30 ML VIAL SUBQ ONE; +BUPIVACAINE 0.5%-EPI 1:200000 PF 30 ML VIAL SUBQ ONE; +DEXAMETHASONE 4 MG/ML VIAL IVP ONE; -EPINEPHrine 1 MG/ML AMP ONE; +HYDROmorphone 1 MG/ML CARPUJECT IVP ONE; +ONDANSETRON 4 MG/2 ML VIAL IVP ONE; +PROPOFOL 200 MG/20 ML VIAL IVP ONE; +ROCURONIUM 50 MG/5 ML VIAL IVP ONE; +SUCCINYLCHOLINE 200 MG/10 ML VIAL IVP ONE; +SUGAMMADEX 200 MG/2 ML VIAL IVP ONE; -TIMOLOL 0.5% OPHTH DROPS ONE; -TRIAMCIN/MOXIFLOX OPHTHALMIC 0.6 ML VIAL IO ONE; -VANCOMYCIN OPHTHALMI 8MG/0.8ML 8 MG/0.8 ML SYRINGE IO ONE; +ceFAZolin 1 GM VIAL IV ONE; +fentaNYL 100 MCG/2 ML VIAL IVP ONE; +metroNIDAZOLE 500 PREMIX IV ONE
[2023-04-20] MEDS ORDERED: SODIUM CHLORIDE 0.9% 1,000 ML IV STA (22:28)
[2023-04-20] MEDS ORDERED: MORPHINE 2 MG/ML CARPUJECT IVP STA (22:28)
[2023-04-20] MEDS ORDERED: ONDANSETRON 4 MG/2 ML VIAL IVP STA (22:28)
--- NOTE | 2023-04-20 22:30 | ED Physician Documentation ---
History of Present Illness - Stated complaint Stated Complaint: ABD PX - Chief complaint Chief Complaint: Abd Pain - History obtained from History obtained from: Patient, Family - History of Present Illness Timing: Today, How many hours ago (2) Pain level max: 6 Pain level now: 6 - Additonal information Additional information: 83-year-old female presents to the emergency department with right lower quadrant abdominal pain x 2 to 3 hours. She noticed swelling in the area as well. She had a recent lumbar back surgery for kyphosis at [facility] on March 29. Has had nausea but no vomiting. No diarrhea or constipation. No difficulty with urination. No fevers. No chills. Has a history of a cholecystectomy in the past as well as a partial hysterectomy. Has not taken anything for pain. Nothing seems to make it better or worse. Review of Systems Constitutional: denies: Fever, Chills GI: reports: Nausea. denies: Vomiting, Diarrhea : denies: Dysuria, Frequency, Hesitancy Musculoskeletal: denies: Neck pain, Back pain Neurologic: denies: Headache PD PAST MEDICAL HISTORY - Past Medical History Cardiovascular: Hypertension Respiratory: None Endocrine/Autoimmune: None GI: GERD : None HEENT: None Psych: Claustrophobia Musculoskeletal: Osteoarthritis Derm: None - Past Surgical History General: Cholecystectomy, Colonoscopy /NEGATIVE SPOTTER: Hysterectomy HEENT: Tonsil/Adenoidectomy - Present Medications Home Medications: Ambulatory Orders Medication Instructions Recorded Confirmed Aspirin [Aspir 81] 81 mg ORAL DAILY 12/05/13 11/24/17 Esomeprazole Magnesium [Nexium] 20 mg PO DAILY PRN 12/05/13 11/24/17 hydroCHLOROthiazide 12.5 mg PO DAILY 12/05/13 11/24/17 [Hydrochlorothiazide] Ascorbic Acid [Vitamin C] 500 mg PO BID 11/22/17 11/24/17 Calcium Carbonate/Vitamin D3 1 each PO BID 11/22/17 11/24/17 [Caltrate 600 Plus D3 Tablet] Mv-Min/Folic/K1/Lycopen/Lutein 1 each PO DAILY 11/22/17 11/24/17 [Centrum Silver Men Tablet] Potassium Chloride [Klor-Con M20] 20 meq PO DAILY 11/22/17 11/24/17 - Allergies Allergies/Adverse Reactions: Allergies Allergy/AdvReac Type Severity Reaction Status Date / Time No Known Drug Allergies Allergy Verified 04/20/23 22:01 PD ED PE NORMAL - Vitals Vital signs reviewed: Yes - General General: Alert and oriented X 3, No acute distress - HEENT HEENT: PERRL - Neck Neck: Supple, no meningeal sign - Cardiac Cardiac: RRR, Strong equal pulses - Respiratory Respiratory: No respiratory distress, Clear bilaterally - Abdomen Abdomen: Other (Tender to palpation suprapubic and right lower quadrant. There is distention at this point that is tympanic to percussion. No peritoneal signs) - Back Back: No CVA TTP, No spinal TTP - Derm Derm: Warm and dry - Extremities Extremities: No edema, No calf tenderness / cord - Neuro Neuro: Alert and oriented X 3 - Psych Psych: Normal mood, Normal affect Results - Vitals Vitals: Vital Signs - 24 hr 04/20/23 21:53 Temperature 36.4 C L Heart Rate 102 H Respiratory 18 Rate Blood Pressure 155/80 H O2 Saturation 98 Oxygen O2 Source Room air - Labs Labs: Laboratory Tests 04/20/23 04/20/23 22:30 22:30 WBC 6.7 RBC 4.20 Hgb 12.1 Hct 39.9 MCV 95.0 MCH 28.8 MCHC 30.3 L RDW 14.1 Plt Count 388 MPV 9.1 Neut # (Auto) 5.1 Lymph # (Auto) 1.0 L Powell # (Auto) 0.6 Eos # (Auto) 0.0 Baso # (Auto) 0.0 Absolute Nucleated RBC 0.00 Nucleated RBC % 0.0 Sodium 137 Potassium 3.6 Chloride 100 L Carbon Dioxide 28 Anion Gap 9.0 BUN 15 Creatinine 0.8 Estimated GFR (MDRD) 68 L Glucose 133 H Calcium 10.2 Total Bilirubin 0.3 AST 11 ALT 7 L Alkaline Phosphatase 76 Total Protein 6.7 Albumin 3.9 Globulin 2.8 Albumin/Globulin Ratio 1.4 Lipase 11 PD Medical Decision Making - ED course Complexity details: reviewed results, re-evaluated patient, considered differential, d/w patient, d/w family ED course: 83-year-old female with abdominal pain and nausea. She has obvious distention in the lower abdomen. Bedside ultrasound is obscured by gas in this area. Possible bowel obstruction? Will order a CT scan. Patient is signed out to Dr. Nolasco pending results of the CT scan. Please see her note for final disposition. This document was made in part using voice recognition software. While efforts are made to proofread this document, sound alike and grammatical errors may occur. Departure - Departure Clinical Impression: Abdominal pain Qualifiers: Abdominal location: unspecified location Qualified Code(s): R10.9 - Unspecified abdominal pain Condition: Stable Forms: PCP List
[2023-04-20 22:35] LABS: BASOPHILS % (AUTO) 0.4 %; EOSINOPHILS % (AUTO) 0.6 %; HCT - HEMATOCRIT 39.9 % (37.0-47.0); HGB - HEMOGLOBIN 12.1 g/dL (12.0-16.0); LYMPHOCYTES % (AUTO) 14.5 %; MEAN CORPUSCULAR HEMOGLOBIN 28.8 pg (27.0-31.0); MEAN CORPUSCULAR HGB CONC 30.3 g/dL (32.0-36.0); MEAN PLATELET VOLUME 9.1 fL (7.9-10.8); MONOCYTES # (AUTO) 0.6 10^3/uL (0.0-1.0); MONOCYTES % (AUTO) 8.4 %; NEUTROPHILS # (AUTO) 5.1 10^3/uL (1.5-6.6); NEUTROPHILS % (AUTO) 75.7 %; PLT - PLATELET COUNT 388 10^3/uL (130-450); RED CELL DISTRIBUTION WIDTH 14.1 % (12.0-15.0); WHITE BLOOD COUNT 6.7 x10^3/uL (4.8-10.8)
[2023-04-20 22:48] LABS: ALBUMIN 3.9 g/dL (3.2-5.5); ALBUMIN/GLOBULIN RATIO 1.4 (1.0-2.2); BILIRUBIN,TOTAL 0.3 mg/dL (0.2-1.0); CALCIUM 10.2 mg/dL (8.5-10.3); CREATININE 0.8 mg/dL (0.6-1.3); POTASSIUM 3.6 mmol/L (3.5-4.5); TOTAL PROTEIN 6.7 g/dL (6.4-8.9)
[2023-04-21] MEDS ORDERED: iohexoL-300 100 ML VIAL IVP ONE
--- NOTE | 2023-04-21 00:20 | CT Report ---
PROCEDURE: ABDOMEN/PELVIS W INDICATIONS: lower abd pain, swelling CONTRAST: Omni 300 100ml TECHNIQUE: After the administration of intravenous contrast, 5 mm thick sections acquired from the diaphragms to the symphysis. 5 mm thick coronal and sagittal reformats were acquired. For radiation dose reducti on, the following was used: automated exposure control, adjustment of mA and/or kV according to odette ent size. COMPARISON: Lumbar spine radiographs 02/04/2023. FINDINGS: Image quality: Excellent. Lung bases and heart: Unremarkable. Liver: No solid mass. Gallbladder and biliary tree: Surgically absent. No biliary dilation, accounting for post-cholecystec nancy state. Spleen: No splenomegaly. Numerous calcified granulomas. Pancreas: No pancreatic ductal dilation. Adrenals: No adrenal nodule. Kidneys and ureters: No hydronephrosis. No renal cystic lesion which requires follow up. No solid mas s. Bowel and peritoneum: Diverticulosis. No diverticulitis. Prominent stool in the throughout the colon. Thickening in the ascending colon, (5/20). The upstream seen, is markedly dilated filled with a core residue. The terminal ileum is at the upper limits of normal in caliber. The appendix is prominent. No small bowel obstruction. The stomach is not distended. There is trace fluid in the right paracolic gutter. No pneumoperitoneum. Lymph nodes: No central or retroperitoneal adenopathy. Vessels: No infrarenal aortic aneurysm. PELVIS Reproductive organs: Small volume of free fluid in the pelvis. Bladder: Unremarkable. Pelvic lymph nodes: No pelvic adenopathy by size criteria. Bones: No aggressive osseous abnormality. Prior vertebroplasty at T11 and T12. Sacral Tarlov cysts. Other: No significant ventral or inguinal hernia. IMPRESSION: 1. Cecum is markedly distended with fecal residue. This could be due to obstructing lesion in the ups tream ascending colon. Cecal bascule/cecal volvulus are felt to be less likely. 2. Small volume of free fluid. No pneumoperitoneum. 3. Terminal ileum is prominent. No small bowel obstructive demonstrated. Recommend further evaluation of the colon with colonoscopy if not recently performed. Results were communicated to Dr. Vargas (sp) at 04/21/2023 12:18 AM PST. Reviewed by: Nish Morgan MD on 04/21/2023 12:19 AM PST Approved by: Nish Morgan MD on 04/21/2023 12:19 AM PST Station ID: [id number]
[2023-04-21 00:23] LABS: BILIRUBIN,URINE NEGATIVE (NEGATIVE); GLUCOSE, URINE (UA) NEGATIVE (NEGATIVE); KETONES,URINE (UA) NEGATIVE (NEGATIVE); LEUKOCYTE ESTERASE, URINE NEGATIVE (NEGATIVE); NITRITE,URINE NEGATIVE (NEGATIVE); OCCULT BLOOD,URINE NEGATIVE (NEGATIVE); PROTEIN,URINE NEGATIVE (NEGATIVE); UROBILINOGEN,URINE 0.2 (NORMAL) E.U./dL (NORMAL)
[2023-04-21 00:25] LABS: CLARITY,URINE CLEAR (CLEAR)
[2023-04-21] MEDS ORDERED: SODIUM CHLORIDE 0.9% 1,000 ML IV STA (00:52)
--- NOTE | 2023-04-21 00:59 | ED Physician Documentation ---
ED Addendum - Addendum Addendum: 04/21/23 00:58 patient with distended cecum on CT with obstructing lesion in ascending colon versus cecal volvulus with some free fluid as discussed with radiologist. d/w Dr. Resendez, surgeon quality assurance monitor who will take patient to OR and then manage in ICU. Impression 1. SBO 2. abdominal pain Condition stable Disposition admit ICU
[2023-04-21] MEDS ORDERED: SODIUM CHLORIDE FLUSH 0.9% 10 ML SYRINGE IVP PRN ×2 (01:41→06:22)
[2023-04-21] MEDS ORDERED: ONDANSETRON 4 MG/2 ML VIAL IVP PRN ×2 (01:41→02:07)
[2023-04-21] MEDS ORDERED: ceFAZolin (2G) 2 GM in SODIUM CHLORIDE 0.9% 100ML 100 ML IV STA (01:46)
[2023-04-21] MEDS ORDERED: ACETAMINOPHEN 1,000 MG/100 ML 1,000 MG/100 ML BAG IV ONE (01:46)
--- NOTE | 2023-04-21 01:53 | SURGERY HX AND PHYSICAL(T) ---
Surgical History & Physical - Chief Complaint/HPI Chief Complaint: "my hip hurts" History of Present Illness: This is an 83-year-old female with a past medical history significant for hypertension, osteoarthritis, osteoporosis, gout, GERD, anemia, and kyphoplasty approximately 1 month ago who presents with a 6-hour history of right lower abdominal pain. The patient states she was in her normal state of health yesterday. She ate some breakfast, lunch, and a small dinner at approximately 4 :30 PM. About 7 PM she began having intense, achy pain in the right lower abdomen which is intermittent. The pain is associated with nausea but no vomiting. The pain does not radiate. She denies any fevers or chills. She has not had similar pain in the past. She denies any constipation or diarrhea and her last bowel movement was yesterday. It was noted to be dark which is normal for her due to her iron supplementation. She has not noted any recent changes in her bowel habits, blood in her stool, or melanotic stool. She has had colonoscopies in the past, and the last one was greater than 10 years ago. She does note about a 7-8 pound weight loss over the last 2 weeks. She also endorses occasional leg swelling. She has been ambulating with the assistance of a walker since her kyphoplasty, but states that she has been getting around better recently. She lives alone, but her daughter, Xiao, lives nearby and brought her in [facility]. - PMH/PSH/Social Hx Does the pt have a hx of MRSA?: No Neurological History: None Eyes, Ears, Nose, Throat: None Cardiovascular: Hypertension Respiratory: None Skin: None Endocrine/Autoimmune: None Gastrointestinal: GERD Urinary: None Musculoskeletal: Osteoarthritis, Osteoporosis, Gout Psychiatric: Claustrophobia General: Cholecystectomy, Colonoscopy (More than 10 years ago) Orthopedic: Spine surgery (Kyphoplasty in March 2023) Eyes Ears Nose Throat (EENT): Tonsil/Adenoidectomy PSH Other: Hysterectomy Smoking Status: Never smoker Does the pt drink ETOH?: No Does the pt have substance abuse?: No - Family Hx Family Hx: Other (Noncontributory) - Home Meds and Allergies Home Medications: Aspirin [Aspir 81] 81 mg ORAL DAILY 12/05/13 Ascorbic Acid [Vitamin C] 500 mg PO BID 11/22/17 Calcium Carbonate/Vitamin D3 [Caltrate 600 Plus D3 Tablet] 1 each PO BID 11/22/17 Alendronate [Fosamax] 70 mg PO DAILY 04/20/23 Fluticasone Propionate [Fluticasone Propionate Hfa] 10.6 gm IH 04/20/23 Furosemide [Lasix] 20 mg PO DAILY 04/20/23 Potassium Chloride [K-Dur] 20 meq PO DAILY 04/20/23 allopurinoL [Zyloprim] 100 mg PO DAILY 04/20/23 methocarbamoL [Methocarbamol] 500 mg PO 04/20/23 traMADol [Ultram] 50 mg PO 04/20/23 Allergies/Adverse Reactions: Allergies Allergy/AdvReac Type Severity Reaction Status Date / Time No Known Drug Allergies Allergy Verified 04/20/23 22:01 - Review of Systems Constitutional: Other (A complete 10 point review of symptoms is otherwise negative except for that noted in HPI and PMH.) - Vital Signs Heart Rate: 102 Blood Pressure: 152/65 Temperature: 36.4 C Respiratory Rate: 16 O2 Saturation: 97 Weight (kg): 73.028 kg Height: 1.78 m - Physical Exam Comments/Other: GEN: No acute distress, appears stated age, alert and oriented HEENT: NCAT, MMM, EOMI NEURO: CN II-XII grossly intact, no obvious focal deficits CV: RRR PULM: Nonlabored, on room air ABD: Markedly distended lower abdomen with palpable mass in the right lower quadrant. The patient is exquisitely tenderness to palpation in the right and left lower quadrant with involuntary guarding, no rebound tenderness. Positive tympany. CIRCULATORY: no clubbing, cyanosis, or edema SKIN: no lesions appreciated LYMPH: no obvious lymphadenopathy MSK: 4/4 strength in all extremities PSYCH: Affect is appropriate - Patient Review Patient Review: Problems were reviewed with the patient during this visit. Medications were reviewed with the patient during this visit. Allergies were reviewed this patient during this visit. Pertinent Tests Reviewed: All pertitent test for this patient were reviewed. - Assessment & Plan Assessment and Plan: This is an 83-year-old female with: 1. Right colon obstruction I personally interpreted the images and reviewed the report from the patient's CT scan done just before midnight. This demonstrates a large bowel obstruction of the ascending colon possibly due to to a obstructing colon mass versus cecal volvulus. There is no free air, there is a small amount of free fluid.There is no obvious lymphadenopathy in the area. The patient's vital signs, and laboratory studies are within normal limits. Given the patient's physical exam, and imaging findings, she clearly has a complete large bowel obstruction. This is a surgical emergency. She is at risk for impending perforation. The underlying etiology of her obstruction is difficult to ascertain based on imaging alone, however the next step in her management is surgery regardless. I discussed the risks, benefits, and alternatives of an exploratory laparotomy with likely right colon resection, and possible ostomy formation with the patient and her daughter Xiao at bedside. Risks include bleeding, infection, damage to the surrounding structures, anastomotic leak, and the need for further surgeries or procedures. The risk of not doing surgery is the patient could develop a perforation of her colon leading to fecal contamination, sepsis, and likely . The patient and her daughter voiced understanding, their questions were answered, and they wish to proceed with surgery at this time. I plan for right colon resection with primary anastomosis; if the patient becomes unstable in the OR, or an anastomosis is not technically feasible at this time, and end ileostomy may be required. -Plan for emergency surgery tonight. -The patient's last p.o. intake was dinner at approximately 430 yesterday afternoon. -Perioperative antibiotics and multimodal pain approach have been ordered. ERAS protocol is not being followed secondary to the patient's obstruction. -Postoperatively, I anticipate the patient will be hospitalized for several days while we await adequate pain control and return of bowel function. Given her advanced age and multiple medical comorbidities, I will admit her to the ICU overnight, and plan to transfer to the floor when stable. 2. Hypertension, GERD, gout, arthritis, osteoporosis -I will restart the patient's home medications after surgery.
[2023-04-21] MEDS ORDERED: metroNIDAZOLE 500 MG/100 ML 500 MG/100 ML BAG IV SCH (02:00)
--- NOTE | 2023-04-21 02:06 | ANESTHESIA ---
Pre-Anesthesia VS, & Labs - Diagnosis Right colon obstruction - Procedure exploratory laparotomy Vital Signs: Temp Pulse Resp BP Pulse Ox O2 Flow Rate 36.4 C L 102 H 16 152/65 H 97 04/21/23 01:58 04/21/23 01:58 04/21/23 01:58 04/21/23 01:58 04/21/23 01:58 Height: 5 ft 10 in Weight (kg): 73.028 kg Body Mass Index: 23.1 BMI Classification: Normal - NPO >8 hours - Is Patient ?: No - Lab Results Current Lab Results: Laboratory Tests 04/21/23 00:30: Lactic Acid 1.0 04/20/23 22:30: Sodium 137, Potassium 3.6, Chloride 100 L, Carbon Dioxide 28, Anion Gap 9.0, BUN 15, Creatinine 0.8, Estimated GFR (MDRD) 68 L, Glucose 133 H, Calcium 10.2, Total Bilirubin 0.3, AST 11, ALT 7 L, Alkaline Phosphatase 76, Total Protein 6.7, Albumin 3.9, Globulin 2.8, Albumin/Globulin Ratio 1.4, Lipase 11 04/20/23 22:30: WBC 6.7, RBC 4.20, Hgb 12.1, Hct 39.9, MCV 95.0, MCH 28.8, MCHC 30.3 L, RDW 14.1, Plt Count 388, MPV 9.1, Neut # (Auto) 5.1, Lymph # (Auto) 1.0 L, Tripp # (Auto) 0.6, Eos # (Auto) 0.0, Baso # (Auto) 0.0, Absolute Nucleated RBC 0.00, Nucleated RBC % 0.0 Lab results reviewed: Yes Fish Bones: 04/20/23 22:30 04/20/23 22:30 Home Medications and Allergies Home Medications: Ambulatory Orders Alendronate [Fosamax] 70 mg PO DAILY 04/20/23 Fluticasone Propionate [Fluticasone Propionate Hfa] 10.6 gm IH 04/20/23 Furosemide [Lasix] 20 mg PO DAILY 04/20/23 Potassium Chloride [K-Dur] 20 meq PO DAILY 04/20/23 allopurinoL [Zyloprim] 100 mg PO DAILY 04/20/23 methocarbamoL [Methocarbamol] 500 mg PO 04/20/23 traMADol [Ultram] 50 mg PO 04/20/23 Active Medications Sodium Chloride (Normal Saline 0.9%) 1,000 mls @ 150 mls/hr IV .Q6H40M STA Stop: 04/21/23 05:07 Last Admin: 04/21/23 01:32 Dose: 150 mls/hr Sodium Chloride (Normal Saline 0.9%) 1,000 mls @ 150 mls/hr IV .Q6H40M STA Stop: 04/21/23 07:31 Last Admin: 04/21/23 01:41 Dose: Not Given Lactated Ringer's (Lr) 1,000 mls @ 100 mls/hr IV .Q10H ARACELI Cefazolin Sodium 2 gm/ Sodium (Chloride) 100 mls @ 200 mls/hr IV ONCE STA Stop: 04/21/23 02:15 Metronidazole (Flagyl 500 Mg/100 Ml) 500 mg in 100 mls @ 100 mls/hr IV ONCE ARACELI Stop: 04/22/23 01:59 Ondansetron HCl (Ondansetron 4 Mg/2 Ml Vial) 4 mg IVP Q6HR PRN PRN Reason: Nausea / Vomiting Sodium Chloride (Sodium Chloride Flush 0.9% 10 Ml Syringe) 10 ml IVP PRN PRN PRN Reason: NEEDED PER PROVIDER ORDERS Sodium Chloride (Sodium Chloride Flush 0.9% 10 Ml Syringe) 10 ml IVP 0100,0900,1700 COUNT INCLUDES THE [facility] Aspirin [Aspir 81] 81 mg ORAL DAILY 12/05/13 Ascorbic Acid [Vitamin C] 500 mg PO BID 11/22/17 Calcium Carbonate/Vitamin D3 [Caltrate 600 Plus D3 Tablet] 1 each PO BID 11/22/17 Alendronate [Fosamax] 70 mg PO DAILY 04/20/23 Fluticasone Propionate [Fluticasone Propionate Hfa] 10.6 gm IH 04/20/23 Furosemide [Lasix] 20 mg PO DAILY 04/20/23 Potassium Chloride [K-Dur] 20 meq PO DAILY 04/20/23 allopurinoL [Zyloprim] 100 mg PO DAILY 04/20/23 methocarbamoL [Methocarbamol] 500 mg PO 04/20/23 traMADol [Ultram] 50 mg PO 04/20/23 Allergies/Adverse Reactions: Allergies Allergy/AdvReac Type Severity Reaction Status Date / Time No Known Drug Allergies Allergy Verified 04/20/23 22:01 Anes History & Medical History - Anesthetic History Anesthesia Complications: reports: No previous complications - Medical History Cardiovascular: reports: Hypertension Pulmonary: reports: None Gastrointestinal: reports: GERD Urinary: reports: None Neuro: reports: None Musculoskeletal: reports: Osteoarthritis, Osteoporosis, Gout Endocrine/Autoimmune: reports: None Skin: reports: None Smoking Status: Never smoker Psychosocial: reports: No issues indicated History of Cancer?: No - Surgical History General: reports: Cholecystectomy, Colonoscopy (More than 10 years ago) Eyes Ears Nose Throat (EENT): reports: Tonsil/Adenoidectomy Gynecologic: reports: Hysterectomy Orthopedic: reports: Spine surgery (Kyphoplasty in March 2023) Other Past Surgical History: Hysterectomy Exam General: Alert, Oriented x3, Cooperative, No acute distress Dental: WNL Mouth Openin Fingerbreadth Neck Mobility: Normal Mallampati classification: III Thyromental Distance: less than 4 cm Mental/Cognitive Status: Alert/Oriented X3, Normal for patient Plan Anesthesia Type: General Consent for Procedure(s) Verified and Reviewed: Yes Code Status: Attempt Resuscitation ASA classification: 2-Mild systemic disease Is this case an emergency?: Yes
[2023-04-21] MEDS ORDERED: ATROPINE ABBOJECT 1 MG/10 ML SYRINGE IVP PRN (02:07)
[2023-04-21] MEDS ORDERED: NALOXONE 0.4 MG/ML VIAL IVP PRN (02:07)
[2023-04-21] MEDS ORDERED: MORPHINE 2 MG/ML CARPUJECT IVP PRN (02:07)
[2023-04-21] MEDS ORDERED: fentaNYL 100 MCG/2 ML VIAL IVP PRN (02:07)
[2023-04-21] MEDS ORDERED: HYDROmorphone 0.5 MG/0.5 ML SYRINGE IVP PRN ×2 (02:07→06:25)
[2023-04-21] MEDS ORDERED: BUPIVACAINE 0.5%-EPI 1:200000 PF 30 ML VIAL SUBQ ONE (02:58)
[2023-04-21] MEDS ORDERED: LACTATED RINGERS 1,000 ML IV SCH (03:00)
[2023-04-21] MEDS ORDERED: LACTATED RINGERS 800 ML IV ONE (06:16)
--- NOTE | 2023-04-21 06:33 | OPERATIVE REPORT ---
Operative Report - General Procedure Date: 04/21/23 Planned Procedure: exploratory laparotomy, possible bowel resection, possible ostomy Pre-Op Diagnosis: right colon obstruction Procedure Performed: exploratory laparotomy, right hemicolectomy, lysis of adhesions for one hour Post Op Diagnosis: right colon mass causing complete colon obstruction - Procedure Note Primary Surgeon: Dr. Yaima Resendez Secondary Surgeon: Dr. Jaison Grant Anesthesia Provider: Catherine Monreal CRNA Anesthesia Technique: General ET tube Pathology: right colon Estimated Blood Loss (mL): 75 Indications: The patient presented with a 6-hour history of severe right lower quadrant pain and abdominal distention. CT scan demonstrated a right colon obstruction with possible mass versus possible volvulus. The patient was seen and evaluated in the emergency department where I discussed the risks, benefits, and alternatives to surgery including bleeding, infection, damage to surrounding structures, anastomotic leak, and the need for further surgeries or procedures with the patient and her daughter. They voiced understanding, their questions were answered, and they wish to proceed with surgery.A consent was signed in the emergency department. Findings: 1.Extensive adhesions along the anterior abdominal wall between the omentum and the abdominal wall 2. Right colon mass causing obstruction 3. Severely dilated cecum 4. Stapled anastomosis, widely patent 5. Normal appearing liver, normal to palpation Complications: None - Other Other Information/Narrative: The patient received preoperative antibiotics. She was brought to the operative suite and placed in the supine position. General endotracheal anesthesia was induced. A Thorpe catheter was placed. She was prepped and draped in the usual sterile fashion. The patient's cecum markedly dilated on her CT scan. Therefore, I elected to make a periumbilical incision and proceed with an open approach. 0.25% Marcaine with epinephrine anesthetic was injected into the skin and subcutaneous tissues in the location of the periumbilical incision. The incision was made with a 10 blade scalpel and carried down to the level of the fascia using blunt and sharp dissection with electrocautery. The fascia was incised the length of the incision, with care taken to stay in the midline. Next, a Rich retractor was used to elevate the abdominal wall. Immediately, significant adhesions were encountered within the intra-abdominal cavity. Careful dissection both bluntly and sharply was undertaken with great care taken to stay away from any bowel contents. Lysis of adhesions took approximately 1 hour. The cecum was noted to be very dilated and in the right lower quadrant the remainder of the abdomen was explored. There were no signs of metastatic disease in the liver, omentum, or peritoneum. The right line of Toldt was taken down with blunt and sharp dissection with electrocautery, taking great care to cauterize only to those tissues I could easily see through. A Bookwalter retractor was placed. Mobilization of the colon was very difficult due to the dilated cecum and large mass. At this time, due to the surgical complexity of this case, I asked Dr. Grant to assist. Next, 2 blue towels were placed and the sites for the proximal and distal resection margins were chosen on the distal ileum and the proximal ascending colon. A TRISH 75 stapler was used to come across the ileum and the colon. An impact LigaSure device was used to divide the mesentery. We then worked both proximally and distally to free the mass and perform an en bloc resection. The specimen was passed off and labeled right colon. Hemostasis was confirmed. Next, the ileum and transverse colon were brought into apposition and found to lie comfortably next to each other. A stay suture of 3-0 Vicryl was placed to approximate the antimesenteric borders of the bowel segments. Enterotomies were made on the antimesenteric aspects of the terminal ileum and transverse colon and the linear cutting stapler was inserted and fired. The proximal and distal resection margins incorporated the common enterotomy and a second blue staple load was fired across the bowel to achieve this resection. The anastomosis was checked and found to be intact and widely patent. Gloves were replaced and dirty instruments were passed off. Next, the abdominal cavity was copiously irrigated with 2 L of warm normal saline and hemostasis was confirmed. Then, the fascia was closed with a running 2-0 PDS suture. The subcutaneous tissues were irrigated with normal saline. Finally, the skin edges were reapproximated using skin aakash. A sterile dressing was placed. The patient tolerated the procedure well. There were no complications. She was extubated and the Thorpe catheter remained in place at the end of the case. She was transferred to the recovery room in stable condition.
[2023-04-21] MEDS: LACTATED RINGERS 1,000 ML IV SCH ×3 (06:52→15:44)
[2023-04-21] MEDS: SODIUM CHLORIDE FLUSH 0.9% 10 ML SYRINGE IVP SCH ×3 (08:37→23:37)
[2023-04-21] MEDS: ENOXAPARIN 40 MG/0.4 ML SYRINGE SUBQ SCH (08:37)
[2023-04-21] MEDS: ACETAMINOPHEN 325 MG TABLET PO SCH ×5 (08:37→23:37)
[2023-04-21] MEDS ORDERED: SODIUM CHLORIDE FLUSH 0.9% 10 ML SYRINGE IVP SCH (09:00)
[2023-04-21] MEDS: ceFAZolin (2G) 2 GM in SODIUM CHLORIDE 0.9% MINIBAG 100 ML IV SCH ×2 (09:15→16:59)
[2023-04-21] MEDS: metroNIDAZOLE 500 MG/100 ML 500 MG/100 ML BAG IV SCH ×2 (09:52→17:58)
--- NOTE | 2023-04-21 11:05 | ANESTHESIA POST OP EVALUATION ---
Anesthesia Post Eval - Post Anesthesia Eval Vitals: Last Vital Signs Temp 36.7 C 04/21/23 08:00 Pulse 90 04/21/23 09:53 Resp 18 04/21/23 09:53 BP 130/58 L 04/21/23 09:53 Pulse Ox 97 04/21/23 09:53 O2 Flow Rate CV Function Including HR & BP: Stable Pain Control: Satisfactory Nausea & Vomiting: Negative Mental Status: Baseline Respiratory Status: Airway Patent Hydration Status: Satisfactory Anesthesia Complications: None
--- NOTE | 2023-04-21 14:18 | PHARMACY PROGRESS NOTE ---
- Best Possible Medication History Admit Date and Time: 04/21/23 0142 Processed by: Pharmacy Medication History completed: Yes Patient Interview: Pt unable to participate Secondary Source(s): Physician records, Pharmacy records, Insurance records As the person ultimately responsible for medication therapy, providers are able to order a medication from an existing home medication list in [facility] via the "Reconcile Routine" prior to Confirmation of that medication by academic support specialist. Such practice is discouraged except when the physician, in their clinical judgment, deems that a medical need exists for a medication without regard to previous use.
[2023-04-21] MEDS ORDERED: HYDROmorphone 0.5 MG/0.5 ML SYRINGE ONE (19:49)
[2023-04-21] MEDS: HYDROmorphone 0.5 MG/0.5 ML SYRINGE IVP PRN ×2 (19:53→23:38)
[2023-04-21] MEDS: FLUTICASONE NASAL SPRAY NAS SCH (20:30)
[2023-04-22] MEDS: ceFAZolin (2G) 2 GM in SODIUM CHLORIDE 0.9% MINIBAG 100 ML IV SCH (02:29)
[2023-04-22] MEDS: HYDROmorphone 0.5 MG/0.5 ML SYRINGE IVP PRN (02:36)
[2023-04-22] MEDS: metroNIDAZOLE 500 MG/100 ML 500 MG/100 ML BAG IV SCH (03:32)
[2023-04-22] MEDS: ACETAMINOPHEN 325 MG TABLET PO SCH ×5 (05:01→20:55)
[2023-04-22] MEDS: LACTATED RINGERS 1,000 ML IV SCH (05:01)
[2023-04-22 05:46] LABS: BASOPHILS % (AUTO) 0.2 %; EOSINOPHILS # (AUTO) 0.1 10^3/uL (0.0-0.7); EOSINOPHILS % (AUTO) 0.6 %; HCT - HEMATOCRIT 35.3 % (37.0-47.0); HGB - HEMOGLOBIN 10.6 g/dL (12.0-16.0); LYMPHOCYTES # (AUTO) 1.2 10^3/uL (1.5-3.5); LYMPHOCYTES % (AUTO) 14.9 %; MEAN CORPUSCULAR VOLUME 96.7 fL (81.0-99.0); MEAN PLATELET VOLUME 9.1 fL (7.9-10.8); MONOCYTES # (AUTO) 0.8 10^3/uL (0.0-1.0); MONOCYTES % (AUTO) 9.5 %; NEUTROPHILS % (AUTO) 74.6 %; PLT - PLATELET COUNT 344 10^3/uL (130-450); RED BLOOD COUNT 3.65 10^6/uL (4.20-5.40); RED CELL DISTRIBUTION WIDTH 14.3 % (12.0-15.0); WHITE BLOOD COUNT 8.1 x10^3/uL (4.8-10.8)
[2023-04-22 06:03] LABS: CALCIUM 8.4 mg/dL (8.5-10.3); CREATININE 0.7 mg/dL (0.6-1.3); MAGNESIUM 1.7 mg/dL (1.7-2.3); PHOSPHORUS 2.7 mg/dL (2.5-5.0); POTASSIUM 3.5 mmol/L (3.5-4.5)
[2023-04-22] MEDS ORDERED: HYDROmorphone 0.5 MG/0.5 ML SYRINGE IVP PRN (08:12)
--- NOTE | 2023-04-22 08:15 | PROVIDER PROGRESS NOTE ---
Subjective - General Admit Date: 04/21/23 Procedure Date: 04/21/23 Post Op Days: 1 Procedure Performed: ex lap, right hemicolectomy - Other Other Information/Narrative: Pain controlled. Tolerating clears. No n/v, also not hungry. + ambulation to void, cerrato removed yesterday. No flatus or BM. Objective - Patient Data Reviewed Vital Signs: Yes Vital Signs: Vital Signs x48h Temp Pulse Resp BP Pulse Ox 04/22/23 08:00 37.2 C 86 12 134/66 H 97 04/22/23 07:00 37.1 C 85 22 108/61 96 04/22/23 06:00 78 15 119/55 L 95 04/22/23 05:26 83 20 120/55 L 96 04/22/23 04:00 82 11 L 112/55 L 94 04/22/23 03:00 81 11 L 108/50 L 93 04/22/23 02:00 79 11 L 110/49 L 94 04/22/23 01:00 81 11 L 103/48 L 94 Weight: Weight 04/20/23 04/21/23 04/22/23 23:59 23:59 23:59 Weight (kg) 73.028 kg 76.5 kg 75.5 kg Intake & Output: Intake and Output Totals x24h 04/20/23 04/21/23 04/22/23 23:59 23:59 23:59 Intake Total 2180.000 1320 Output Total 1110 150 Balance 7125.518 8897 - Lab Results Lab Results: 04/22/23 05:36 04/22/23 05:36 Other Lab Results: Lab Results x24hrs 04/22/23 04/22/23 04/21/23 Range/Units 05:36 05:36 08:50 WBC 8.1 (4.8-10.8) x10^3/uL RBC 3.65 L (4.20-5.40) 10^6/uL Hgb 10.6 L (12.0-16.0) g/dL Hct 35.3 L (37.0-47.0) % MCV 96.7 (81.0-99.0) fL MCH 29.0 (27.0-31.0) pg MCHC 30.0 L (32.0-36.0) g/dL RDW 14.3 (12.0-15.0) % Plt Count 344 (130-450) 10^3/uL MPV 9.1 (7.9-10.8) fL Neut # (Auto) 6.0 (1.5-6.6) 10^3/uL Lymph # (Auto) 1.2 L (1.5-3.5) 10^3/uL Garza # (Auto) 0.8 (0.0-1.0) 10^3/uL Eos # (Auto) 0.1 (0.0-0.7) 10^3/uL Baso # (Auto) 0.0 (0.0-0.1) 10^3/uL Absolute Nucleated RBC 0.00 x10^3/uL Nucleated RBC % 0.0 /100WBC Sodium 138 (135-145) mmol/L Potassium 3.5 (3.5-4.5) mmol/L Chloride 104 (101-111) mmol/L Carbon Dioxide 27 (21-32) mmol/L Anion Gap 7.0 (6-13) BUN 12 (6-20) mg/dL Creatinine 0.7 (0.6-1.3) mg/dL Estimated GFR (MDRD) 80 L (>89) Glucose 106 H (74-104) mg/dL Calcium 8.4 L (8.5-10.3) mg/dL Phosphorus 2.7 (2.5-5.0) mg/dL Magnesium 1.7 (1.7-2.3) mg/dL Nasal Screen MRSA (PCR) NEGATIVE (NEGATIVE) - Current Medications Current Medications: Current Medications Generic Name Dose Route Start Last Admin Trade Name Freq PRN Reason Stop Dose Admin Acetaminophen 650 mg 04/21/23 09:00 04/22/23 05:01 Acetaminophen 325 Mg Tablet PO 650 mg Q4HR ARACELI Administration Enoxaparin Sodium 40 mg 04/21/23 09:00 04/21/23 08:37 Enoxaparin 40 Mg/0.4 Ml Syringe SUBQ 40 mg DAILY ARACELI Administration Fluticasone Propionate 1 sprays 04/21/23 21:00 04/21/23 20:30 Fluticasone Nasal [place] KETAN 1 spray BID ARACELI Administration Lactated Ringer's 1,000 mls @ 100 mls/hr 04/21/23 02:00 04/22/23 05:01 Lr IV 100 mls/hr .Q10H ARACELI Administration Cefazolin Sodium 2 gm/ Sodium 100 mls @ 200 mls/hr 04/21/23 10:00 04/22/23 03:24 Chloride IV 04/22/23 09:59 Infused Q8H ARACELI Infusion Metronidazole 500 mg in 100 mls @ 100 mls/hr 04/21/23 11:00 04/22/23 03:32 Flagyl 500 Mg/100 Ml IV 04/22/23 10:59 100 mls/hr Q8H ARACELI Administration Sodium Chloride 10 ml 04/21/23 09:00 04/21/23 23:37 Sodium Chloride Flush 0.9% 10 Ml Syringe IVP 10 ml 0100,0900,1700 ARACELI Administration - Physical Exam Wound/Incisions: positive: Dressing dry and intact, No drainage, Other (aakash and dressing in place) General Appearance: positive: No acute distress, Alert Eyes Bilateral: positive: EOMI ENT: positive: No signs of dehydration Neck: positive: Trachea midline Respiratory: positive: No respiratory distress Cardiovascular: positive: Regular rate & rhythm Abdomen: positive: Tenderness (appropriate incisional ttp). negative: Guarding, Rebound Skin: positive: No rash Extremities: positive: Non-tender, Full ROM Neurologic/Psychiatric: positive: Oriented x3 Impression/Plan - Problem List Problem List: This is an 83-year-old female admitted with a right colon mass causing obstruction, s/p open right hemicolectomy, POD#1: 1. Right colon mass - pathology pending, suspect colon ca (LN and liver appeared normal intraop) - incision looks good, aakash in place - tolerating clears, will adat to full liquids and await increased bowel function to resume regular diet - multimodal pain approach. Patient has been getting dilaudid but no PO meds. RN's encouraged to give PO meds first. - hgb drop as expected after surgery. Will f/u with repeat CBC tomorrow. - plan to increase activity today, PT recommending SNU, SW consult ordered. Patient does have family that can stay with her for a couple days on discharge, if needed. 2. Hypertension, GERD, gout, arthritis, osteoporosis -I will restart the patient's home medications after surgery. PPX GI: PPI DVT: SDC's, lovenox I would like the patient to follow up with me in clinic in two weeks for post op check and staple removal. I am off call today and this patient will be followed by Dr. Emanuel Rivera starting this morning.
[2023-04-22] MEDS: IBUPROFEN 400 MG TABLET PO PRN ×3 (08:36→17:16)
[2023-04-22] MEDS: oxyCODONE 5 MG TABLET PO PRN ×2 (08:37→18:26)
[2023-04-22] MEDS: POTASSIUM CHLORIDE 20 MEQ TABLET PO SCH (08:56)
[2023-04-22] MEDS: FLUTICASONE NASAL SPRAY NAS SCH ×2 (08:57→20:56)
[2023-04-22] MEDS: FUROSEMIDE 20 MG TABLET PO SCH (08:57)
[2023-04-22] MEDS: allopurinoL 100 MG TABLET PO SCH (08:57)
[2023-04-22] MEDS: ENOXAPARIN 40 MG/0.4 ML SYRINGE SUBQ SCH (08:57)
[2023-04-22] MEDS: SODIUM CHLORIDE FLUSH 0.9% 10 ML SYRINGE IVP SCH ×2 (09:08→17:17)
[2023-04-22] MEDS ORDERED: MIN OIL/DIMETHICON/COCONUT OIL 92 GM TUBE TOP PRN (13:20)
[2023-04-22] MEDS: ZINC OXIDE 20% OINT 30 GM TUBE TOP PRN (17:16)
[2023-04-23] MEDS: ACETAMINOPHEN 325 MG TABLET PO SCH ×6 (00:19→20:33)
[2023-04-23] MEDS: SODIUM CHLORIDE FLUSH 0.9% 10 ML SYRINGE IVP SCH ×3 (00:20→17:55)
[2023-04-23] MEDS: oxyCODONE 5 MG TABLET PO PRN ×3 (01:08→22:25)
[2023-04-23] MEDS: POTASSIUM CHLORIDE 20 MEQ TABLET PO SCH (08:40)
[2023-04-23] MEDS: IBUPROFEN 400 MG TABLET PO PRN ×3 (08:40→20:33)
[2023-04-23] MEDS: allopurinoL 100 MG TABLET PO SCH (08:40)
[2023-04-23] MEDS: FLUTICASONE NASAL SPRAY NAS SCH ×2 (08:41→20:34)
[2023-04-23] MEDS: ENOXAPARIN 40 MG/0.4 ML SYRINGE SUBQ SCH (08:41)
[2023-04-23] MEDS: FUROSEMIDE 20 MG TABLET PO SCH (08:43)
--- NOTE | 2023-04-23 11:54 | PROVIDER PROGRESS NOTE ---
Subjective - Subjective Pt reports feeling: Improved (having bms, tolerating fulls, hungry for regular food) Objective - Vital Signs/Intake & Output Reviewed Vital Signs: Yes Vital Signs: Vital Signs x48h Temp Pulse Resp BP Pulse Ox 04/23/23 08:14 36.8 C 72 18 120/56 L 96 04/23/23 05:45 36.6 C 72 18 137/62 H 92 Intake & Output: Intake & Output 04/20/23 04/21/23 04/22/23 04/23/23 23:59 23:59 23:59 23:59 Intake Total 2180.000 4445 440 Output Total 1110 626 Balance 4550.038 7457 440 - Objective General Appearance: positive: No acute distress, Alert Eyes Bilateral: positive: PERRL, EOMI, No scleral icterus Respiratory: positive: No respiratory distress Abdomen: positive: Non-tender, No distention, Other (according to nurse dressing c/d/i and underlying incision with aakash. no erythema. pt currently standing and with pt) Neurologic/Psychiatric: positive: Oriented x3 - Lab Results Fish Bones: 04/22/23 05:36 04/22/23 05:36 Assessment/Plan - Problem List (1) Abdominal pain Impression: doing very well after right colectomy for obstruction. path pending. she lives alone. kelsey lives 10 minutes away and checks on her frequently. d/c planning Qualifiers: Abdominal location: unspecified location Qualified Code(s): R10.9 - Un specified abdominal pain
[2023-04-23] MEDS ORDERED: ALENDRONATE 70 MG TABLET PO SCH (12:00)
[2023-04-23] MEDS: ZINC OXIDE 20% OINT 30 GM TUBE TOP PRN (15:39)
[2023-04-24] MEDS: SODIUM CHLORIDE FLUSH 0.9% 10 ML SYRINGE IVP SCH ×3 (01:24→17:45)
[2023-04-24] MEDS: IBUPROFEN 400 MG TABLET PO PRN ×4 (01:24→18:59)
[2023-04-24] MEDS: ACETAMINOPHEN 325 MG TABLET PO SCH ×6 (01:24→21:23)
[2023-04-24] MEDS: FUROSEMIDE 20 MG TABLET PO SCH (08:21)
[2023-04-24] MEDS: POTASSIUM CHLORIDE 20 MEQ TABLET PO SCH (08:21)
[2023-04-24] MEDS: ENOXAPARIN 40 MG/0.4 ML SYRINGE SUBQ SCH (08:22)
[2023-04-24] MEDS: allopurinoL 100 MG TABLET PO SCH (08:22)
[2023-04-24] MEDS: FLUTICASONE NASAL SPRAY NAS SCH ×2 (08:25→21:23)
[2023-04-24] MEDS: polyethylene glycoL 3350 17 GM PACKET PO SCH (09:23)
--- NOTE | 2023-04-24 12:12 | PROVIDER PROGRESS NOTE ---
Subjective - Subjective Pt reports feeling: Improved (feels well. tolerating diet) Objective - Vital Signs/Intake & Output Vital Signs: Vital Signs x48h Temp Pulse Resp BP Pulse Ox 04/24/23 09:00 36.3 C L 70 18 128/51 L 97 Intake & Output: Intake & Output 04/21/23 04/22/23 04/23/23 04/24/23 23:59 23:59 23:59 23:59 Intake Total 2180.000 4445 700 640 Output Total 1110 626 4 Balance 4549.624 3288 700 636 - Objective General Appearance: positive: No acute distress, Alert Eyes Bilateral: positive: PERRL, EOMI Respiratory: positive: No respiratory distress Abdomen: positive: Non-tender, No distention, Other (incision c/d/i without erythema) Neurologic/Psychiatric: positive: Oriented x3 - Lab Results Fish Bones: 04/22/23 05:36 04/22/23 05:36 Assessment/Plan - Problem List (1) Abdominal pain Impression: right colectomy for obstruction. doing very well lives alone and has some support from her daughter. pt states her daughter thinks she needs more help than she can provide such as snf prior to pt going home. d/c planning Qualifiers: Abdominal location: unspecified location Qualified Code(s): R10.9 - Unspecified abdominal pain
[2023-04-24] MEDS: oxyCODONE 5 MG TABLET PO PRN (18:56)
[2023-04-25] MEDS: SODIUM CHLORIDE FLUSH 0.9% 10 ML SYRINGE IVP SCH ×3 (00:04→16:54)
[2023-04-25] MEDS: ACETAMINOPHEN 325 MG TABLET PO SCH ×6 (01:30→20:57)
[2023-04-25] MEDS: IBUPROFEN 400 MG TABLET PO PRN (02:25)
--- NOTE | 2023-04-25 06:57 | PROVIDER PROGRESS NOTE ---
Subjective - General Admit Date: 04/21/23 Procedure Date: 04/21/23 Post Op Days: 4 Procedure Performed: ex lap, right hemicolectomy - Review of Systems Wound/Incisions: positive: Dressing dry and intact, No drainage, Other (aakash and dressing in place) - Other Other Information/Narrative: General Surgery Progress Note Hospital Day # 5 - Right colon obstruction POD # 4, Exploratory laparotomy, Right hemicolectomy ASSESSMENT: 1) Excellent post-op course. Pain under good control, ambulating, tolerating a diet. No BM yet; Interested in swing bed disposition PLAN: 1) Advance diet as tolerated 2) Continue ambulation and post-op physical activity 3) Discharge planning <><><><><> PERTINENT INTERVAL ISSUES: None S: No complaints; Pain under good control; Tolerating a diet; Passing flatus but no BM yet OBJECTIVE: I/O: See below VS: See below EXAMINATION: MENTAL STATUS: AAO; Comfortable EYES: Pupils equal, round and reactive to light, sclera anicteric, EARS, NOSE, MOUTH, THROAT: Normal hearing, Oral mucous membranes moist and without lesions; NECK: No crepitus, lymphadenopathy, or thyromegaly LUNGS: Clear to auscultation without wheezing; No use of accessory muscles to breathe CARDIOVASCULAR: Heart-NSR without murmurs; ABD: Binder in place; Soft, non-tender, Supra-umbilical midline incision clean and dry; No distension; few BS EXTREMITIES: No clubbing, cyanosis, infections SKIN: Anicteric; No rashes, lesions, ulcerations LABS: See below CULTURES: N/A IMAGING: None today ANTIMICROBIALS: Prophylactic completed PAIN CONTROL: Dilaudid IV prn, Oxycodone PO prn, Ibuprofen prn, Acetaminophen VTEP: Chemical: Heparin, 5,000 units SQ Q 12 hrs Mechanical: SCD David Benavides MD General Surgery Service Objective - Patient Data Vital Signs: Vital Signs x48h Temp Pulse Resp BP Pulse Ox 04/25/23 04:43 97.5 F L 70 18 136/61 H 96 04/24/23 23:32 97.7 F 79 16 129/65 95 Weight: Weight 04/23/23 04/24/23 04/25/23 23:59 23:59 23:59 Weight (kg) 75 kg 75.5 kg 74.5 kg Intake & Output: Intake and Output Totals x24h 04/23/23 04/24/23 04/25/23 23:59 23:59 23:59 Intake Total 700 1620 Output Total 4 Balance 700 1616 - Lab Results Lab Results: 04/22/23 05:36 04/22/23 05:36 - Current Medications Current Medications: Current Medications Generic Name Dose Route Start Last Admin Trade Name Freq PRN Reason Stop Dose Admin Acetaminophen 650 mg 04/21/23 09:00 04/25/23 04:44 Acetaminophen 325 Mg Tablet PO 650 mg Q4HR ARACELI Administration Alendronate Sodium 70 mg 04/23/23 12:00 04/23/23 16:57 Alendronate 70 Mg Tablet PO 70 mg Q7D ARACELI Administration Allopurinol 100 mg 04/22/23 09:00 04/24/23 08:22 Allopurinol 100 Mg Tablet PO 100 mg DAILY ARACELI Administration Enoxaparin Sodium 40 mg 04/21/23 09:00 04/24/23 08:22 Enoxaparin 40 Mg/0.4 Ml Syringe SUBQ 40 mg DAILY ARACELI Administration Fluticasone Propionate 1 sprays 04/21/23 21:00 04/24/23 21:23 Fluticasone Nasal [place] KETAN 1 spray BID ARACELI Administration Furosemide 20 mg 04/22/23 09:00 04/24/23 08:21 Furosemide 20 Mg Tablet PO 20 mg DAILY ARACELI Administration Ibuprofen 400 mg 04/21/23 06:22 04/25/23 02:25 Ibuprofen 400 Mg Tablet PO 400 mg Q4HR PRN Administration Moderate Pain (Level 4-6) Multi-Ingredient Ointment 1 applic 04/22/23 13:28 04/23/23 15:39 Zinc Oxide 20% Oint 30 Gm Tube TOP 1 applic PRN PRN Administration Skin Care Oxycodone HCl 5 mg 04/21/23 06:22 04/24/23 18:56 Oxycodone 5 Mg Tablet PO 5 mg Q4HR PRN Administration Severe Pain (Level 7-10) Polyethylene Glycol 17 gm 04/24/23 09:00 04/24/23 09:23 Polyethylene Glycol 3350 17 Gm Packet PO 17 gm DAILY ARACELI Administration Potassium Chloride 20 meq 04/22/23 09:00 04/24/23 08:21 Potassium Chloride 20 Meq Tablet PO 20 meq DAILYWM ARACELI Administration Sodium Chloride 10 ml 04/21/23 06:22 04/22/23 11:21 Sodium Chloride Flush 0.9% 10 Ml Syringe IVP 10 ml PRN PRN Administration NEEDED PER PROVIDER ORDERS Sodium Chloride 10 ml 04/21/23 09:00 04/25/23 00:04 Sodium Chloride Flush 0.9% 10 Ml Syringe IVP 10 ml 0100,0900,1700 ARACELI Administration
[2023-04-25] MEDS: POTASSIUM CHLORIDE 20 MEQ TABLET PO SCH (08:01)
[2023-04-25] MEDS: FUROSEMIDE 20 MG TABLET PO SCH (08:01)
[2023-04-25] MEDS: allopurinoL 100 MG TABLET PO SCH (08:02)
[2023-04-25] MEDS: ENOXAPARIN 40 MG/0.4 ML SYRINGE SUBQ SCH (08:03)
[2023-04-25] MEDS: polyethylene glycoL 3350 17 GM PACKET PO SCH (08:04)
[2023-04-25] MEDS: FLUTICASONE NASAL SPRAY NAS SCH ×2 (08:04→20:57)
--- NOTE | 2023-04-25 14:44 | PROVIDER PROGRESS NOTE ---
Progress Note General Surgery Afternoon Progress Note S: Comfortable; Minimal discomfort; No BM yet; O: VSS, afeb; Sitting in chair; Abdomen is soft A: Continues to improve Plan: 1) Continue PO intake 2) Transfer to Swing bed status tomorrow. David Benavides MD General Surgery Service
[2023-04-25] MEDS: MULTIVITAMIN W/MINERALS TABLET PO SCH (16:54)
[2023-04-26] MEDS: ACETAMINOPHEN 325 MG TABLET PO SCH ×3 (00:12→08:46)
[2023-04-26] MEDS: SODIUM CHLORIDE FLUSH 0.9% 10 ML SYRINGE IVP SCH ×2 (00:13→08:47)
[2023-04-26] MEDS: ZINC OXIDE 20% OINT 30 GM TUBE TOP PRN (00:25)
[2023-04-26] MEDS: POTASSIUM CHLORIDE 20 MEQ TABLET PO SCH (08:45)
[2023-04-26] MEDS: FUROSEMIDE 20 MG TABLET PO SCH (08:46)
[2023-04-26] MEDS: MULTIVITAMIN W/MINERALS TABLET PO SCH (08:46)
[2023-04-26] MEDS: allopurinoL 100 MG TABLET PO SCH (08:46)
[2023-04-26] MEDS: FLUTICASONE NASAL SPRAY NAS SCH (08:46)
[2023-04-26] MEDS: polyethylene glycoL 3350 17 GM PACKET PO SCH (08:47)
[2023-04-26] MEDS: ENOXAPARIN 40 MG/0.4 ML SYRINGE SUBQ SCH (08:47)
--- NOTE | 2023-04-26 08:47 | PROVIDER PROGRESS NOTE ---
Progress Note General Surgery Progress Note S: AAO: Minimal abdominal discomfort; Ambulatory; Passing flatus and a small amount of stool from the rectum. O: VSS, afeb; Lungs clear; Heart NSR; Abdomen soft, non-distended, incision clean and dry A: Ready for discharge and transfer to Swing Bed status Plan: 1) Discharge from in-patient status; Admit into Swing Bed by Medical Hospitalist. 2) May shower over wound with dressing off 3) Diet as tolerated 4) Tylenol for mild discomfort; Oxycodone for severe discomfort 5) Continue PT for post-op rehabilitation 6) Path report still pending 7) Continue Enoxaparin for 3 weeks post-op David Benavides MD General Surgery Service
--- NOTE | 2023-04-26 08:48 | DISCHARGE SUMMARY ---
"Discharge Summary Admit Date: 04/21/23 Discharge Date: 04/26/23 Discharging Provider: Makayla Code Status: Attempt Resuscitation Condition at Discharge: Good Discharge Disposition: 61 Swing Bed DC/Xfer - DIAGNOSES Admission Diagnoses: Colon obstruction due to ascending colon mass Discharge Diagnoses with Status of Each Condition: Colon obstruction - resolved with surgery (Exploratory laparotomy, Right hemicolectomy) - HPI History of Present Illness: This is an 83-year-old female with a past medical history significant for hypertension, osteoarthritis, osteoporosis, gout, GERD, anemia, and kyphoplasty approximately 1 month ago who presents with a 6-hour history of right lower abdominal pain. The patient states she was in her normal state of health yesterday. She ate some breakfast, lunch, and a small dinner at approximately 4:30 PM. About 7 PM she began having intense, achy pain in the right lower abdomen which is intermittent. The pain is associated with nausea but no vomiting. The pain does not radiate. She denies any fevers or chills. She has not had similar pain in the past. She denies any constipation or diarrhea and her last bowel movement was yesterday. It was noted to be dark which is normal for her due to her iron supplementation. She has not noted any recent changes in her bowel habits, blood in her stool, or melanotic stool. She has had colonoscopies in the past, and the last one was greater than 10 years ago. She does note about a 7-8 pound weight loss over the last 2 weeks. She also endorses occasional leg swelling. She has been ambulating with the assistance o f a walker since her kyphoplasty, but states that she has been getting around better recently. She lives alone, but her daughter, Xiao, lives nearby and [facility]. - CONSULTS | PROCEDURES Procedures: 04/21/23 - Exploratory laparotomy, Right hemicolectomy - HOSPITAL COURSE Hospital Course: Uncomplicated - ALLERGIES Allergies/Adverse Reactions: Allergies Allergy/AdvReac Type Severity Reaction Status Date / Time No Known Drug Allergies Allergy Verified 04/20/23 22:01 - MEDICATIONS Home Medications: Ambulatory Orders Medication Instructions Recorded Confirmed Aspirin [Aspir 81] 81 mg ORAL DAILY 12/05/13 04/21/23 Ascorbic Acid [Vitamin C] 500 mg PO BID 11/22/17 04/21/23 Calcium Carbonate/Vitamin D3 1 each PO BID 11/22/17 04/21/23 [Caltrate 600 Plus D3 Tablet] Alendronate [Fosamax] 70 mg PO Q7D 04/20/23 04/22/23 Furosemide [Lasix] 20 mg PO DAILY 04/20/23 04/20/23 Potassium Chloride [K-Dur] 20 meq PO DAILYWM 04/20/23 04/21/23 allopurinoL [Zyloprim] 100 mg PO DAILY 04/20/23 04/20/23 methocarbamoL [Methocarbamol] 500 - 1,000 mg PO HS PRN 04/20/23 04/21/23 traMADol [Ultram] 50 mg PO QID PRN 04/20/23 04/21/23 Fluticasone [Flonase] 1 sprays KETAN BID 04/21/23 04/21/23 - PHYSICAL EXAM AT DISCHARGE General Appearance: positive: No acute distress, Alert Eyes Bilateral: positive: Normal inspection ENT: positive: ENT inspection nml, Pharynx nml Neck: positive: Nml inspection Respiratory: positive: Chest non-tender, No respiratory distress, Breath sounds nml Cardiovascular: positive: Regular rate & rhythm, No murmur Peripheral Pulses: positive: 2+ Abdomen: positive: Nml bowel sounds, No distention, Other (Midline wound healing without bleeding or infection) Back: positive: Nml inspection Skin: positive: Warm, Dry Extremities: positive: Non-tender, Full ROM - LABS Result Diagrams: 04/22/23 05:36 04/22/23 05:36 - DIAGNOSTIC IMAGING Diagnostic Imaging Results: See rad report - QUALITY (Female Hip Fx Only) Was patient sent home on osteoporosis medication?: No - FOLLOW UP Follow Up: Patient discharged to Swing Bed where she will be followed by General Surgery along with Medical Hospitalist - TIME SPENT Time Spent in Discharge (Minutes): 45"
[2023-04-26] MEDS ORDERED: DOCUSATE SODIUM 250 MG CAPSULE PO SCH (09:00)
[2023-04-26] MEDS ORDERED: SENNA 8.6 MG TABLET PO SCH (09:00)
[2023-04-26 09:35] VITALS: BP 140/63; O2SAT 96
--- NOTE | 2023-04-26 10:10 | Discharge Plan ---
Discharge Plan Problem Reviewed?: Yes Disposition: 61 Swing Bed DC/Xfer Condition: Good Diet: Regular Activity Restrictions: Activity as Tolerated Shower Restrictions: No Plan of Treatment: Swing bed status until fully recuperated from surgery and home care evaluated for safety. Additional Instructions or Follow Up instructions: Diet - General Activity - As tolerated; PTOT Meds - see list; Recommend Enoxaparin for 3 weeks post op No Smoking: If you smoke, Please STOP! Call for help. Follow-up with: Kaci Bain PA [Primary Care Provider] - Dayron Resendez MD [Provider Admit Priv/Credential] -
== END 2023-04-26 12:29 | disposition swing bed (61) | DRG 331 ==
LOC: ED 21:52 → SDS 04-21 01:41 → ICU 04-21 01:42 → MS2 04-24 21:35
PROVIDERS: ADMIT Surgery; ATTEND Surgery
PROC: 0DNW0ZZ Release Peritoneum, Open Approach (ICD-10-PCS; 2023-04-21)
PROC: 0DTF0ZZ Resection of Right Large Intestine, Open Approach (ICD-10-PCS; principal; 2023-04-21 02:00)
DX: K56.609 Unspecified intestinal obstruction, unspecified as to partial versus complete obstruction (principal); C18.2 Malignant neoplasm of ascending colon; K66.0 Peritoneal adhesions (postprocedural) (postinfection); I10 Essential (primary) hypertension; Z98.890 Other specified postprocedural states; K21.9 Gastro-esophageal reflux disease without esophagitis; M81.0 Age-related osteoporosis without current pathological fracture; M10.9 Gout, unspecified; M19.90 Unspecified osteoarthritis, unspecified site; Z90.49 Acquired absence of other specified parts of digestive tract
CPT/HCPCS: 36415; 74177; 80048; 80053; 81003; 83605; 83690; 83735; 84100; 85025; 87640; 96374; 96375; 97116; 97161; 97530; 99284; 99285; A9270; J0131; J0330; J1170; J1650; J7120; Q9967; 81001; 87086

== ENCOUNTER 2023-04-26 09:01 | Inpatient (IN) | payer MEDICARE, OTHER ==
[2023-04-26] MEDS ORDERED: ALENDRONATE 70 MG TABLET PO SCH (14:00)
[2023-04-26] MEDS: FUROSEMIDE 20 MG TABLET PO SCH (14:57)
[2023-04-26] MEDS: ACETAMINOPHEN 325 MG TABLET PO PRN (15:55)
[2023-04-27] MEDS: ACETAMINOPHEN 325 MG TABLET PO PRN ×2 (01:45→18:57)
[2023-04-27] MEDS: ZINC OXIDE 20% OINT 30 GM TUBE TOP SCH ×3 (01:47→18:57)
[2023-04-27] MEDS: IBUPROFEN 400 MG TABLET PO PRN (02:03)
[2023-04-27] MEDS: oxyCODONE 5 MG TABLET PO PRN (03:28)
[2023-04-27] MEDS: FUROSEMIDE 20 MG TABLET PO SCH ×2 (05:56→14:41)
[2023-04-27] MEDS: allopurinoL 100 MG TABLET PO SCH (08:18)
[2023-04-27] MEDS: ENOXAPARIN 40 MG/0.4 ML SYRINGE SUBQ SCH (08:18)
[2023-04-27] MEDS: MULTIVITAMIN W/MINERALS TABLET PO SCH (08:18)
[2023-04-27] MEDS: FLUTICASONE NASAL SPRAY NAS SCH (08:19)
--- NOTE | 2023-04-27 11:18 | HISTORY & PHYSICAL EXAMINATION ---
Chief Complaint - Chief Complaint Chief Complaint: Weakness after severe illness History of Present Illness - Admitted From Admitted From:: Acute care - History Obtained From Records Reviewed: [facility] History obtained from: Patient and Dr. Sims Exam Limitations: None - History of Present Illness HPI Comment/Other: This is a very linda 83-year-old female who has a past medical history significant for hypertension, osteoarthritis, osteoporosis, gout, GERD, Iron deficiency anemia and a kyphoplasty that was done a month ago they came to the emergency room April 21. She presented as right lower abdominal pain. She had a 7 to 8 pound weight loss in the 2 weeks before because of anorexia. CAT scan showed right lower quadrant mass, and she underwent an exploratory laparotomy and right hemicolectomy April 21. She now has an ostomy. The final diagnosis on the pathology was that of an invasive adenocarcinoma, grade 3, poorly differentiated, 7.2 cm in maximal dimension, clear margins, and 24 lymph nodes negative. At this time her staging is pT3 pN1c. Also seen was a pedunculated tubular adenoma with focal high-grade dysplasia and a flat sessile serrated adenoma with cytological dysplasia. She had a slow recovery with generalized weakness. She needs help with the ostomy, and physical therapy to increase functional status. As such she is discharged from acute care status on April 26 and was admitted to swing bed status. I am seeing her for the first time today. She is oriented to person, place, time and situation. But she is forgetful at times loses track of the date. She is intermittently anxious about the future and how she will take care of her self or who will take care of herself. She is producing gas and stool in the ostomy bag. She has been working with physical therapy and using a wheeled walker. She is able to ambulate with a walker, and needs standby assist and contact-guard assist to go from sitting to standing. She can do 3 steps on the stairs in the hallway very very slowly. Limitations are fear, pain in the abdominal wound, and generalized deconditioning. But she is making progress. History - Past Medical History Cardiovascular: reports: Hypertension, High cholesterol (triglycerides), Angina (`) Respiratory: reports: None, Shortness of breath (Echo 02/2020: Nml LV, EF 60- 65%, Nml RV. 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 Due for kyphoplasty, ), Gout, Fatigue, Chronic back pain (sciatica), Other (Fall 2017, left superior and inferior pubic ramus fracture. In rehab for 2 weeks in [place].) Derm: reports: Other (intermittent nonspecific dermatitis, [place], [place]) MRSA Hx?: No Other Past Medical History: 2 episodes of angioedema. 1 was in 1967 and the other was in 2014. No cause ascertained. Has iron def anemia for years. no cause found. 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 Had hypertension. of old age. Dad had cancer. Unknown type. 1 sister had thyroid cancer. 3 children healthy Living arrangement: At home Living Situation: Alone Social History Notes: Never smoked. Rarely drink. No history of recreational substance abuse. 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 - Substance History Use: Uses substance without health or social issues: NONE Abuse: Recurrent use of substance despite neg consequences: NONE Dependence: Experiences withdrawal or developed tolerances: NONE - POLST Patient has POLST: No Meds/Allgy - Home Medications Home Medications: Ambulatory Orders Medication Instructions Recorded Confirmed Aspirin [Aspir 81] 81 mg ORAL DAILY 12/05/13 04/21/23 Ascorbic Acid [Vitamin C] 500 mg PO BID 11/22/17 04/21/23 Calcium Carbonate/Vitamin D3 1 each PO BID 11/22/17 04/21/23 [Caltrate 600 Plus D3 Tablet] Alendronate [Fosamax] 70 mg PO Q7D 04/20/23 04/22/23 Furosemide [Lasix] 20 mg PO DAILY 04/20/23 04/20/23 Potassium Chloride [K-Dur] 20 meq PO DAILYWM 04/20/23 04/21/23 allopurinoL [Zyloprim] 100 mg PO DAILY 04/20/23 04/20/23 methocarbamoL [Methocarbamol] 500 - 1,000 mg PO HS PRN 04/20/23 04/21/23 traMADol [Ultram] 50 mg PO QID PRN 04/20/23 04/21/23 Fluticasone [Flonase] 1 sprays KETAN BID 04/21/23 04/21/23 Acetaminophen [Tylenol] 650 mg PO Q4HR tab 04/26/23 Docusate Sodium 250Mg Capsule 250 - 500 mg PO DAILY cap 04/26/23 [Colace 250Mg Capsule] Enoxaparin [Lovenox] 40 mg SUBQ DAILY ml 04/26/23 Ibuprofen [Motrin] 400 mg PO Q4HR PRN tab 04/26/23 Multivitamin W/Minerals [Theragran 1 tab PO DAILYWM tab 04/26/23 M] oxyCODONE [Roxicodone] 5 mg PO Q4HR PRN tab 04/26/23 - Allergies Allergies/Adverse Reactions: Allergies Allergy/AdvReac Type Severity Reaction Status Date / Time No Known Drug Allergies Allergy Verified 04/20/23 22:01 Review of Systems - Constitutional Constitutional: reports: Fatigue, Malaise, Poor appetite - Eyes Eyes: denies: Pain, Amaurosis, Field loss - Ears, Nose & Throat Ears, Nose & Throat: reports: Hearing loss. denies: Hearing aids, Tinnitus, Postnasal drainage, Sore throat, Hoarseness - Cardiovascular Cariovascular: reports: Exertional dyspnea, Decr. exercise tolerance. denies: Irregular heart rate, Chest pain, Edema - Respiratory Respiratory: reports: Cough (Mild), SOB with exertion (Mild. She cannot believe how tired she is doing simple things like getting up to go to the bathroom). denies: Sputum production, Wheezing, SOB at rest - Gastrointestinal Gastrointestinal: reports: Abdominal pain (At the incision site.). denies: Abdominal distention, Constipation, Diarrhea - Genitourinary Genitourinary: reports: Incontinence. denies: Dysuria, Frequency, Urgency - Musculoskeletal Musculoskeletal: reports: Stiffness, Muscle weakness (Generalized. Everything is an effort from getting out of bed, to sitting in a chair, to going to the toilet.). denies: Back pain, Muscle aches, Gout - Integumentary Integumentary: denies: Rash, Pruritis, Lesions, Dryness - Neurological Neurological: reports: General weakness, Memory problems. denies: Focal weakness, Headache, Dizziness, Pre-existing deficit - Psychiatric Psychiatric: reports: Anxiety - Endocrine Endocrine: denies: Polyuria, Polydypsia, Polyphagia - Hematologic/Lymphatic Hematologic/Lymphatic: denies: Anemia, Bruising, Petechiae, Blood clots Prior Level of Functionality: She uses a cane prior to her illness. Even the pelvic fracture end of kyphoplasty did not slow her down with regards to staying active she tells me. She was able to dress herself, feed herself, drive a car. Daughter lives down the road and comes over whenever she needs help. Exam - Vital Signs Reviewed Vital Signs: Yes Vital Signs: Vital Signs x48h Temp Pulse Resp BP Pulse Ox 04/27/23 09:00 36.7 C 97 17 140/73 H 97 - Physical Exam General Appearance: positive: No acute distress, Alert, Other (5 foot tall female at 87 kg. She appears quite frail but appropriate in responses.) Eyes Bilateral: positive: PERRL, EOMI ENT: positive: No signs of dehydration Neck: positive: No JVD. negative: Stiff neck Respiratory: positive: No respiratory distress. negative: Wheezes, Rales, Rhonchi Cardiovascular: positive: Regular rate & rhythm, Systolic murmur Peripheral Pulses: positive: 1+ Abdomen: positive: Other (No back pain or abdominal pain laying in bed. When I have her sit up abdominal incision pain is rated 8 out of a 10. When examiner she jumps and grabs my hand so that I do not palpate not even her right or left lower quadrant. She has an epigastric vertical incision. Closed, healed, no drainage.) Skin: positive: Warm, Dry Extremities: positive: Full ROM, No pedal edema Neurologic/Psychiatric: positive: Oriented x3, CN's nml (2-12), Motor nml Conclusion/Plan - Problem List (1) Generalized weakness Conclusion/Plan: In this linda elderly woman who has osteoporosis and had a recent kyphoplasty, and now a colon resection for a 7.2 cm adenocarcinoma of the bowel. She is understandably weak, tired. Working with PT. In the interim between yesterday's admission and today she is already progressing with her goals.Wound is clean and dry. She is passing gas and eating. Plan: Daily PT and OT with goal of being able to ambulate with a walker. Able to get to the bathroom and off the toilet with a walker. And able to feed herself. She most likely will need help with getting dressed, and cooking and cleaning within the house but she says that her daughter lives down the road and will be doing that for her until she can get back on her feet (2) Back pain of thoracolumbar region Conclusion/Plan: She says that the surgery has helped quite a bit but it still there. This morning it was uncomfortable where she felt like "her back was twisted". But as the day has progressed the pain has abated. At home pain medicine consisted of tramadol, ibuprofen, and here she is on Motrin and oxycodone. Plan: No change in pain management. She may need to go home on a few days of oxycodone (3) GERD (gastroesophageal reflux disease) Conclusion/Plan: Proton pump inhibitor as needed. Qualifiers: Esophagitis presence: esophagitis presence not specified Qualified Code(s): K21.9 - Gastro-esophageal reflux disease without esophagitis (4) Adenocarcinoma of colon Conclusion/Plan: : Margins are clean. 0 out of 24 lymph nodes clean. Patient will be referred to oncology in the outpatient setting when she is discharged Core Measures - Anticipated LOS I expect patient to be DC'd or transferred within 96 hours.: No - DVT/VTE - Prophylaxis VTE/DVT Device ordered at admit?: Yes VTE/DVT Prophylaxis med ordered at admit?: Yes
[2023-04-28] MEDS: IBUPROFEN 400 MG TABLET PO PRN (00:32)
[2023-04-28] MEDS: oxyCODONE 5 MG TABLET PO PRN (04:53)
[2023-04-28] MEDS: FUROSEMIDE 20 MG TABLET PO SCH ×2 (06:12→14:11)
[2023-04-28] MEDS: allopurinoL 100 MG TABLET PO SCH (08:20)
[2023-04-28] MEDS: MULTIVITAMIN W/MINERALS TABLET PO SCH (08:20)
[2023-04-28] MEDS: ENOXAPARIN 40 MG/0.4 ML SYRINGE SUBQ SCH (08:20)
[2023-04-28] MEDS: FLUTICASONE NASAL SPRAY NAS SCH (08:21)
[2023-04-28] MEDS: ZINC OXIDE 20% OINT 30 GM TUBE TOP SCH ×2 (08:21→18:45)
--- NOTE | 2023-04-28 11:56 | PROVIDER PROGRESS NOTE ---
Progress Note General Surgery Progress Note I discussed with Angie the results of her pathology report. She has a 7 cm poorly differentiated, mucin secreting adenocarcinoma of the colon which is a Stage 2 ([id number]) lesion. The tumor has not involved any lymph nodes but has invaded into the pericolonic fat. She would not a candidate for adjuvant chemotherapy. I plan to remove her midline wound aakash tomorrow. She continues to progress well in Swing bed status. David Benavides MD General Surgery Service
[2023-04-28] MEDS: ACETAMINOPHEN 325 MG TABLET PO PRN ×2 (12:59→23:59)
[2023-04-29] MEDS: FUROSEMIDE 20 MG TABLET PO SCH ×2 (07:08→14:20)
[2023-04-29 07:58] VITALS: BP 138/69; O2SAT 97
[2023-04-29] MEDS: allopurinoL 100 MG TABLET PO SCH (08:00)
[2023-04-29] MEDS: ENOXAPARIN 40 MG/0.4 ML SYRINGE SUBQ SCH (08:00)
[2023-04-29] MEDS: FLUTICASONE NASAL SPRAY NAS SCH (08:01)
[2023-04-29] MEDS: MULTIVITAMIN W/MINERALS TABLET PO SCH (08:01)
[2023-04-29] MEDS: ZINC OXIDE 20% OINT 30 GM TUBE TOP SCH (08:02)
--- NOTE | 2023-04-29 10:42 | Discharge Plan ---
Discharge Plan Problem Reviewed?: Yes Disposition: Home, Self Care Condition: Stable Prescriptions: oxyCODONE [Roxicodone] 5 mg PO Q4HR PRN #20 tab PRN Reason: Severe Pain (Level 7-10) Diet: Regular Activity Restrictions: Activity as Tolerated Shower Restrictions: No Driving Restrictions: No Health Concerns: You already have a severe problem with osteoporosis and fibromyalgia. You do have a history of falls. You were able to have a kyphoplasty a month ago for one of the broken bones in your spine and had been slowly recovering. But then he developed abdominal pain and you were taken to the operating room. We found to have a 7.2 cm colon cancer of the right side of your bowel. You had to have resection. But you have been slowly recovering. You recovered enough that your wounds are healing, you are now eating. But you were still deconditioned and needed a few more days of physical therapy. You have now had physical therapy and swing bed status, and have achieved her goals of functional mobility, and ability to feed herself, dress herself. Plan of Treatment: Please see your primary care provider in the next 1 to 2 weeks for continuity of care. your primary care provider will need to refer you to oncology to get a final opinion on the colon cancer and future need for therapy. Please see the surgeon at the request of scheduled time. He has removed her aakash. Your wound is clean. He says that you can leave it open to air and take a shower as normal. We will be sending you home with home health PT and OT so you can continue your strengthening exercises at home Care Goals: Back to your baseline status and living independently Assessment: Patient is alert, oriented to person place and time and situation Follow-Up Care: Home Health - RN, Home Health - PT, Home Health - OT No Smoking: If you smoke, Please STOP! Call for help.
--- NOTE | 2023-04-29 11:01 | DISCHARGE SUMMARY ---
Discharge Summary Admit Date: 04/27/23 Discharge Date: 04/29/23 Discharging Provider: Krissy May MD Primary Care Provider: RONDA Welch Code Status: Attempt Resuscitation Condition at Discharge: Stable Discharge Disposition: 01 Home, Self Care - DIAGNOSES Discharge Diagnoses with Status of Each Condition: 1. Generalized weakness after surgery 2. Back pain of thoracolumbar region 3. GERD 4. Adenocarcinoma of the colon - HPI History of Present Illness: This is a very linda 83-year-old female who has a past medical history significant for hypertension, osteoarthritis, osteoporosis, gout, GERD, Iron deficiency anemia and a kyphoplasty that was done a month ago they came to the emergency room April 21. She presented as right lower abdominal pain. She had a 7 to 8 pound weight loss in the 2 weeks before because of anorexia. CAT scan showed right lower quadrant mass, and she underwent an exploratory laparotomy and right hemicolectomy April 21. She now has an ostomy. The final diagnosis on the pathology was that of an invasive adenocarcinoma, grade 3, poorly differentiated, 7.2 cm in maximal dimension, clear margins, and 24 lymph nodes negative. At this time her staging is pT3 pN1c. Also seen was a pedunculated tubular adenoma with focal high-grade dysplasia and a flat sessile serrated adenoma with cytological dysplasia. She had a slow recovery with generalized weakness. She needs help with the ostomy, and physical therapy to increase functional status. As such she is discharged from acute care status on April 26 and was admitted to swing bed status. I am seeing her for the first time today. She is oriented to person, place, time and situation. But she is forgetful at times loses track of the date. She is intermittently anxious about the future and how she will take care of her self or who will take care of herself. She is producing gas and stool in the ostomy bag. She has been working with physical therapy and using a wheeled walker. She is able to ambulate with a walker, and needs standby assist and contact-guard assist to go from sitting to standing. She can do 3 steps on the stairs in the hallway very very slowly. Limitations are fear, pain in the abdominal wound, and generalized deconditioning. But she is making progress. - Past Medical History Cardiovascular: reports: Hypertension, High cholesterol (triglycerides), Angina (`) Respiratory: reports: None, Shortness of breath (Echo 02/2020: Nml LV, EF 60- 65%, Nml RV. 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 Due for kyphoplasty, ), Gout, Fatigue, Chronic back pain (sciatica), Other (Fall 2017, left superior and inferior pubic ramus fracture. In rehab for 2 weeks in [place].) Derm: reports: Other (intermittent nonspecific dermatitis, [place], [place]) MRSA Hx?: No Other Past Medical History: 2 episodes of angioedema. 1 was in 1967 and the other was in 2014. No cause ascertained. Has iron def anemia for years. no cause found. 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 Per their notes: Pt continues to demonstrate excellent progress and has met all PT goals. Patient is now demonstrating household distance amb x150' to 200' with close supervision to SBA. Gait pattern nearly normalized but speed remains lower than safe community ambulation and pt advised to continue to have assistance for ambulation >200'). Pt provided handout with information regarding dressing/ADL equipment and pt reports she feels confident about all home mobility and ADLs aside from incision care. RN/MD to provide pt education regarding this. At this time pt has met PT goals. When cleared by MD, PT recommend discharge home with HHPT/bathaide and continued assist from family for higher level mobility including stairs. Family has confirmed they are able to provide this LOC. General surgery discussed the case with me this morning. He has removed her aakash. The abdominal binder has come off. Incision can be kept clean and dry and no longer needs bandages. She can take a shower. He is already given her discharge instructions and instructions about when to return to see him in the office. I am recommending the patient see her primary care provider in follow-up. With this new diagnosis of colon cancer, she will need referral to oncology for evaluation and treatment. General surgery did spend some time with her explaining the colon cancer and the general prognosis for the future.There is no change in her medication list. I am not changing any of her prescription drugs and I am adding [id number] multivitamin. Dr. Sims is sending her home with Lovenox, Colace, Tylenol, oxycodone and ibuprofen. She is discharged in stable condition. Exam temperature is 36.2. Heart rate 84. Blood pressure 138/69. Respirations 16. 97% on room air. She is 5 foot tall. 70.5 kg. Very quiet, pleasant, almost dry elderly female in no acute distress. Very cooperative with PT and nursing and motivated to get better. Lungs are clear. Regular rate and rhythm. Abdomen is soft, hypoactive bowel sounds, tender only at the incision. She jerks away when I try and do a general abdominal exam and I asked if she is in pain. She smiles and says that is just a nervous habit when anybody's hands go to her belly now. She had a bowel movement yesterday and today. She is ambulating with a walker. Alert and oriented to person, place, time and situation. Greater than 30 minutes was spent coordinating discharge. This document was made in part using voice recognition software. While efforts are made to proofread this document, sound alike and grammatical errors may occur. - ALLERGIES Allergies/Adverse Reactions: Allergies Allergy/AdvReac Type Severity Reaction Status Date / Time No Known Drug Allergies Allergy Verified 04/20/23 22:01 - MEDICATIONS Home Medications: Ambulatory Orders Medication Instructions Recorded Confirmed Aspirin [Aspir 81] 81 mg ORAL DAILY 12/05/13 04/21/23 Ascorbic Acid [Vitamin C] 500 mg PO BID 11/22/17 04/21/23 Calcium Carbonate/Vitamin D3 1 each PO BID 11/22/17 04/21/23 [Caltrate 600 Plus D3 Tablet] Alendronate [Fosamax] 70 mg PO Q7D 04/20/23 04/22/23 Furosemide [Lasix] 20 mg PO DAILY 04/20/23 04/20/23 Potassium Chloride [K-Dur] 20 meq PO DAILYWM 04/20/23 04/21/23 allopurinoL [Zyloprim] 100 mg PO DAILY 04/20/23 04/20/23 methocarbamoL [Methocarbamol] 500 - 1,000 mg PO HS PRN 04/20/23 04/21/23 traMADol [Ultram] 50 mg PO QID PRN 04/20/23 04/21/23 Fluticasone [Flonase] 1 sprays KETAN BID 04/21/23 04/21/23 Acetaminophen [Tylenol] 650 mg PO Q4HR tab 04/26/23 Docusate Sodium 250Mg Capsule 250 - 500 mg PO DAILY cap 04/26/23 [Colace 250Mg Capsule] Enoxaparin [Lovenox] 40 mg SUBQ DAILY ml 04/26/23 Ibuprofen [Motrin] 400 mg PO Q4HR PRN tab 04/26/23 Multivitamin W/Minerals [Theragran 1 tab PO DAILYWM tab 04/26/23 M] oxyCODONE [Roxicodone] 5 mg PO Q4HR PRN tab 04/26/23 Multivitamin W/Minerals [Theragran 1 tab PO DAILYWM tab 04/29/23 M]
[2023-04-30] MEDS ORDERED: ALENDRONATE 70 MG TABLET PO SCH (06:00)
== END 2023-04-29 14:21 | disposition home or self-care (01) | DRG 948 ==
LOC: MS2 13:41
PROVIDERS: ADMIT Specialist; ATTEND Specialist
DX: R53.1 Weakness (principal); C18.9 Malignant neoplasm of colon, unspecified; M54.9 Dorsalgia, unspecified; K21.9 Gastro-esophageal reflux disease without esophagitis; I10 Essential (primary) hypertension; E78.00 Pure hypercholesterolemia, unspecified; M81.0 Age-related osteoporosis without current pathological fracture; Z90.49 Acquired absence of other specified parts of digestive tract; M79.7 Fibromyalgia; Z91.81 History of falling

== ENCOUNTER 2023-05-13 14:18 | Outpatient (CLI) | payer MEDICARE, OTHER ==
--- NOTE | 2023-05-13 15:40 | DEXA Report ---
PROCEDURE: Dexa Spine and/or Hip INDICATIONS: OSTEOPENIA TECHNIQUE: Dual energy x-ray absorptiometry (DXA) was performed on a [facility]. Regions measur ed are the AP Spine, femoral neck, and if needed forearm. COMPARISON: 12/18/2021, 11/28/2017 FINDINGS: Lumbar Spine: Bone Mineral Density 1.219 g/cm/cm,T score 0.3. There has been no statistically significant change i n bone mineral density since the prior study. Left Femoral Neck: Bone Mineral Density 0.711 g/cm/cm, T score -2.4. Left Hip: Bone Mineral Density 0.704 g/cm/cm,T score -10.8. Since the most recent prior study, there has been a statistically significant decrease in bone mineral density by -10.8 percent. (T score greater or equal to -1.0: NORMAL) (T score from -1.1 to -2.4: OSTEOPENIA) (T score less than or equal to -2.5 to: OSTEOPOROSIS) Impression: By WHO criteria, this patient has low bone density (osteopenia). No statistical interval change in bone minteral density of the lumbar spine. Interval statistical dec rease in bone minteral density of the hip. Patients with diagnosis of osteoporosis or osteopenia should have regular bone mineral density assess ment. For those eligible for Medicare, routine testing is allowed once every 2 years. Testing frequ ency can be increased for patients who have rapidly progressing disease or for those who are receivin g medical therapy to restore bone mass. Reviewed by: Donnie Sánchez MD on 05/13/2023 3:39 PM PST Approved by: Donnie Sánchez MD on 05/13/2023 3:39 PM PST Station ID: [id number]
== END 2023-05-13 14:19 | disposition home or self-care (01) ==
LOC: DI 14:18
PROVIDERS: ATTEND Physician Assistant
DX: S22.010D Wedge compression fracture of first thoracic vertebra, subsequent encounter for fracture with routine healing (principal); M85.89 Other specified disorders of bone density and structure, multiple sites